=== PATIENT | male | born 1955 | race Caucasian/White ===

== ENCOUNTER 2020-05-24 12:45 | Outpatient (CLI) | payer OTHER, SELFPAY ==
--- NOTE | ~2020-05-24 | XR_ITS ---
XR chest 2V DATE: 05/24/2020 13:03 INDICATION: Preoperative evaluation. Hypertension. 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 TECHNIQUE: PA and lateral views COMPARISON: None FINDINGS: Diffuse idiopathic skeletal hyperostosis of the thoracolumbar spine. Normal heart size. No hilar or mediastinal enlargement. No pulmonary infiltrate or consolidation, ple ural effusion or pulmonary vascular congestion or pneumothorax. IMPRESSION: No active cardiac pulmonary disease Reviewed, dictated and finalized at location B.
== END 2020-05-24 12:46 | disposition home or self-care (01) ==
LOC: CHSIMG 12:49
PROVIDERS: PCP Internal Medicine; Visit Provider Internal Medicine
DX: M19.90 Unspecified osteoarthritis, unspecified site (principal); E11.9 Type 2 diabetes mellitus without complications; I10 Essential (primary) hypertension; Z01.818 Encounter for other preprocedural examination
CPT/HCPCS: 71046

== ENCOUNTER 2020-10-19 11:28 | Outpatient (CLI) | payer OTHER, SELFPAY ==
--- NOTE | ~2020-10-19 | XR_ITS ---
EXAMINATION: XR chest 2V EXAM DATE: 10/19/2020 11:54 INDICATION: Preoperative. TECHNIQUE: Frontal and lateral projections of the chest obtained and reviewed. Comparison is made to prior examination from 05/24/2020. FINDINGS: The lungs are clear. There are no pleural effusions. The cardiomediastinal silhouette is within normal limits. There is no pneumothorax suspected. Patient has diffuse idiopathic skeletal h yperostosis (DISH). IMPRESSION: No acute cardiopulmonary findings. Reviewed, dictated and finalized at location A. 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
== END 2020-10-19 11:29 | disposition home or self-care (01) ==
LOC: CHSIMG 11:30
PROVIDERS: PCP Internal Medicine; Visit Provider Internal Medicine
DX: Z01.818 Encounter for other preprocedural examination (principal); E11.9 Type 2 diabetes mellitus without complications
CPT/HCPCS: 71046

== ENCOUNTER 2021-08-31 10:54 | Outpatient (RCR) | payer OTHER, SELFPAY ==
--- NOTE | 2021-08-31 11:46 | PTOPEVAL ---
Thank you for referring Jefferson Hillman to [facility].? The patient is scheduled to be seen for therapy? ____x/week for ___ weeks. Please review, sign, date and return this plan of care JC. I agree with and certify that the following plan of care is medically necessary. Referring Physician Date Admitting Provider: Attending Provider: MARY QUIJANO Referring Provider: ShikhaPT Outpatient Evaluation Start: 08/31/21 11:06 Freq: Status: Active Protocol: Document 08/31/21 11:05 [facility] (Rec: 08/31/21 11:44 [facility] [id number]) Therapy Assessment Status Assessment Status Assessment Status Evaluation Evaluation Information Problem Diagnosis s/p L TKA Onset 08/29/21 Additional Evaluation Detail LEFS = Subjective Information patient reports he had TKA of Query Text:As Reported By Patient/ the L knee on 08/29/21. he Family reports the knee was arthritic and had been painful for years. he reports prior to surgery he was using a cane to ambulate. he reports he would like to get rid of the cane for ambulation. he reports he has had the R hip replaced about 10 months ago. he reports the knee is feeling better already. he reports the post op bandage and wrap came of yesterday. follow up with MD on 09/20/21. Prior Level of Function Comments Additional Prior Level of Function prior to surgery, patient Comments reports he had pain in the L knee, weakness, decreased rom, and difficulty walking without an AD. Pain Assessment Timing of Pain Assessment Timing of Pain Assessment Assessment Pain Scale Pain Scale Used Numeric (1 - 10) Self Report Pain Assessment Left Knee(s) Reported Pain Level 3 Greatest Pain Intensity 4 Pain Score Pain Score 3: Self Report Interventions Used Interventions Used By Clinicians Activity or ADL's,Compression Pump,Education,Elevation, Exercise,Ice Lower Extremity Range of Motion Knee Range of Motion Left Knee Flexion Range of Motion - Active 98 Knee Extension Range of Motion - Active -10 Query Text: Right Knee Flexion Range of Motion - Active 115 Knee Extension Range of Motion - Active -3 Query Text: Lower Extremity Muscle Strength Testing Hip Streng
--- NOTE | 2021-09-13 10:58 | PTOPEVAL ---
Thank you for referring Jefferson Hillman to [facility].? The patient is scheduled to be seen for therapy? ____x/week for ___ weeks. Please review, sign, date and return this plan of care JC. I agree with and certify that the following plan of care is medically necessary. Referring Physician Date Admitting Provider: Attending Provider: MARY QUIJANO Referring Provider: ShikhaPT Outpatient Evaluation Start: 08/31/21 11:06 Freq: Status: Active Protocol: Document 09/13/21 10:00 [facility] (Rec: 09/13/21 10:53 [facility] [id number]) Therapy Assessment Status Assessment Status Assessment Status Progress Evaluation Information Problem Diagnosis s/p L TKA Onset 08/29/21 Subjective Information patient reports no pain in the Query Text:As Reported By Patient/ L knee this date. he reports Family the L knee is still tight with bending, but overall is doing well. he reports itching from removing the tape/bandage on the L knee. he rpeorts he apparently is allergic to the adhesive used. Pain Assessment Timing of Pain Assessment Timing of Pain Assessment Assessment Self Report Self Report Pain Level 0 Pain Score Pain Score 0: Self Report Lower Extremity Range of Motion Knee Range of Motion Left Knee Flexion Range of Motion - Active 115 Knee Flexion Range of Motion - Passive -3 Lower Extremity Muscle Strength Testing Hip Strength Left Hip Flexion Strength 4 Good Hip Strength Comments no extension lag with SLR of the L LE Knee Strength Left Knee Flexion Strength 4+ Good + Knee Extension Strength 5 Normal Muscle Length Testing Muscle Length Testing Left Hamstring Length 40 Query Text:(90 - 90 Position) Palpation Assessment Palpation Palpation 4cm girth increase of the L knee jt line compared to the R knee jt line. patient displays redness surrouding the L knee where bandages and tape were used. photos taken this date, and MD updated of this reaction. Gait Assessment Gait Pattern Assessment Other Gait Observations patient ambulates without AD this date. he ambulates 200ft with mild antalgia, but during 3rd 100ft lap he begins to diaplsy increased L trunk lean
--- NOTE | 2021-09-27 12:32 | PTOPEVAL ---
Thank you for referring Jefferson Hillman to [facility].? The patient is scheduled to be seen for therapy? ____x/week for ___ weeks. Please review, sign, date and return this plan of care JC. I agree with and certify that the following plan of care is medically necessary. Referring Physician Date Admitting Provider: Attending Provider: MARY QUIJANO Referring Provider: ShikhaPT Outpatient Evaluation Start: 08/31/21 11:06 Freq: Status: Active Protocol: Document 09/27/21 11:00 [facility] (Rec: 09/27/21 12:32 [facility] [id number]) Therapy Assessment Status Assessment Status Assessment Status Re-evaluation Evaluation Information Problem Diagnosis s/p L TKA Onset 08/29/21 Subjective Information patient reports he feels Query Text:As Reported By Patient/ pretty good this date. he Family reports he does still have trouble with getting the L knee completely straight. he reports he is not sure how long it has been since it was last straight before surgery. he reports he is partially completing home exercises for knee extension. he reports he is performing heel prop exercise, but not the prone knee extension exercise. Pain Assessment Timing of Pain Assessment Timing of Pain Assessment Assessment Pain Scale Pain Scale Used Numeric (1 - 10) Self Report Pain Assessment Left Knee(s) Reported Pain Level 0 Greatest Pain Intensity 4 Pain Score Pain Score 0: Self Report Interventions Used Interventions Used By Clinicians Activity or ADL's,Compression Pump,Education,Exercise,Ice, Manual Therapy Techniques Lower Extremity Range of Motion Knee Range of Motion Left Knee Flexion Range of Motion - Active 110 Knee Flexion Range of Motion - Passive 115 Knee Extension Range of Motion - Active -4 Query Text: Lower Extremity Muscle Strength Testing Hip Strength Left Hip Flexion Strength 4 Good Knee Strength Left Knee Flexion Strength 5 Normal Knee Extension Strength 5 Normal Ankle Strength Left Ankle Dorsiflexion Strength 5 Normal Ankle Plantarflexion Strength 4+ Good + Muscle Length Testing Muscle Length Testing Left Hamstring Length 40 Query Text:(90 - 90 Position) Palpation Assessment Palpation Palpation 46.5cm R knee jt line girth 49cm L knee jt line girth G
--- NOTE | 2021-10-18 13:22 | PTOPEVAL ---
Thank you for referring Jefferson Hillman to [facility].? The patient is scheduled to be seen for therapy? ____x/week for ___ weeks. Please review, sign, date and return this plan of care JC. I agree with and certify that the following plan of care is medically necessary. Referring Physician Date Admitting Provider: Attending Provider: MARY QUIJANO Referring Provider: ShikhaPT Outpatient Evaluation Start: 08/31/21 11:06 Freq: Status: Active Protocol: Document 10/18/21 13:12 [facility] (Rec: 10/18/21 13:21 [facility] [id number]) Therapy Assessment Status Assessment Status Assessment Status Discharge Evaluation Information Problem Diagnosis s/p L TKA Onset 08/29/21 Additional Evaluation Detail LEFS = 16% functionally declined Subjective Information patient reports he feels good Query Text:As Reported By Patient/ this date. he reports he has Family minimal pain in the L knee. he reports he is back to doing his normal daily routine. he is ready to DC therapy this date. Pain Assessment Timing of Pain Assessment Timing of Pain Assessment Assessment Pain Scale Pain Scale Used Numeric (1 - 10) Self Report Pain Assessment Left Knee(s) Reported Pain Level 1 Pain Score Pain Score 1: Self Report Interventions Used Interventions Used By Clinicians Activity or ADL's,Compression Pump,Education,Exercise,Ice, Manual Therapy Techniques Lower Extremity Range of Motion General Lower Extremity Range of Motion Gross Lower Extremity Range of Motion -3 degrees arom L knee Comments extension 120 degrees arom L knee flexion Lower Extremity Muscle Strength Testing General Lower Extremity Strength Gross Lower Extremity Strength 5/5 bilateral hip flex 5/5 bilateral knee flex and ext Gait Assessment Gait Pattern Assessment Gait Pattern No Deviations/Normal Other Gait Observations patient not using cane for ambulation, except when ambulating outside on unlevel surface. Stair Climbing Assessment Stair Climbing Assessment Stair Climbing Comments ambulation up and down steps recirpocally and independent with 1 hand rail hold/assist General Exercise General Exercises Exercise Description see Vy Bernstein PTA Query Text:Record Sets, Reps, documentation Resistance, and Posi
--- NOTE | 2021-10-18 13:50 | PTOPEVAL ---
Thank you for referring Jefferson Hillman to [facility].? The patient is scheduled to be seen for therapy? ____x/week for ___ weeks. Please review, sign, date and return this plan of care JC. I agree with and certify that the following plan of care is medically necessary. Referring Physician Date Admitting Provider: Attending Provider: MARY QUIJANO Referring Provider: ShikhaPT Outpatient Evaluation Start: 08/31/21 11:06 Freq: Status: Active Protocol: Document 10/18/21 13:12 [facility] (Rec: 10/18/21 13:21 [facility] [email or web address]) Therapy Assessment Status Assessment Status Assessment Status Discharge Evaluation Information Problem Diagnosis s/p L TKA Onset 08/29/21 Additional Evaluation Detail LEFS = 16% functionally declined Subjective Information patient reports he feels good Query Text:As Reported By Patient/ this date. he reports he has Family minimal pain in the L knee. he reports he is back to doing his normal daily routine. he is ready to DC therapy this date. Pain Assessment Timing of Pain Assessment Timing of Pain Assessment Assessment Pain Scale Pain Scale Used Numeric (1 - 10) Self Report Pain Assessment Left Knee(s) Reported Pain Level 1 Pain Score Pain Score 1: Self Report Interventions Used Interventions Used By Clinicians Activity or ADL's,Compression Pump,Education,Exercise,Ice, Manual Therapy Techniques Lower Extremity Range of Motion General Lower Extremity Range of Motion Gross Lower Extremity Range of Motion -3 degrees arom L knee Comments extension 120 degrees arom L knee flexion Lower Extremity Muscle Strength Testing General Lower Extremity Strength Gross Lower Extremity Strength 5/5 bilateral hip flex 5/5 bilateral knee flex and ext Gait Assessment Gait Pattern Assessment Gait Pattern No Deviations/Normal Other Gait Observations patient not using cane for ambulation, except when ambulating outside on unlevel surface. Stair Climbing Assessment Stair Climbing Assessment Stair Climbing Comments ambulation up and down steps recirpocally and independent with 1 hand rail hold/assist General Exercise General Exercises Exercise Description see Vy Bernstein PTA Query Text:Record Sets, Reps, documentation Resistance, and Posi
== END 2021-10-18 14:49 | disposition home or self-care (01) ==
LOC: CHSPT 10:54
PROVIDERS: PCP Internal Medicine
DX: M25.562 Pain in left knee (principal); Z47.1 Aftercare following joint replacement surgery; Z96.659 Presence of unspecified artificial knee joint
CPT/HCPCS: 97016; 97110; 97161; 97530

== ENCOUNTER 2022-05-17 15:45 | Outpatient (CLI) | payer OTHER, SELFPAY ==
--- NOTE | ~2022-05-17 | XR_ITS ---
XR lumbar spine 2-3V DATE: 05/17/2022 16:08 INDICATION: Low back pain radiating down right leg for years TECHNIQUE: AP, lateral, coned lateral lumbosacral views COMPARISON: 09/12/2018 lumbar spine FINDINGS: There is minimal dextroscoliosis of the lower thoracic and lumbar spine. There is prominent degenerative spurring of the thoracic and lumbar spine. Moderate degenerative dis c disease throughout the lumbar and lumbosacral spine. The lower thoracic and lumbar pedicles are in tact. No fracture or bone destruction. The lower thoracic and lumbar pedicles are intact. There is a transitional lumbosacral vertebra with bilateral lateral element pseudarthrosis. The sacroiliac joints are intact. Right hip arthroplasty. 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 IMPRESSION: Prominent degenerative spurring throughout the lower thoracic and l umbar spine, moderate degenerative disc disease throughout lumbar spine Transitional lumbosacral vertebra with bilateral sacralization and pseudoarthro sis
== END 2022-05-17 15:46 | disposition home or self-care (01) ==
LOC: CHSIMG 15:47
PROVIDERS: PCP Internal Medicine; Visit Provider Nurse Practitioner Family
DX: M54.50 Low back pain, unspecified (principal)
CPT/HCPCS: 72100

== ENCOUNTER 2023-08-24 10:05 | Outpatient (CLI) | payer MEDICARE, SELFPAY ==
--- NOTE | ~2023-08-24 | XR_ITS ---
XR foot LT min 3V DATE: 08/24/2023 10:39 INDICATION: Redness and swelling at second digit for 4 days TECHNIQUE: 4 views COMPARISON: None FINDINGS: Prominent plantar and mild posterior calcaneal enthesopathy. Mild tarsal and first metatarsophalangeal osteoarthritis. There is soft tissue swelling of the second digit. No fracture, dislocation, periosteal reaction or b one destruction is detected. IMPRESSION: Soft tissue swelling of second digit; no radiopaque foreign body or subcutaneous emphysem a line no fracture or dislocation Calcaneal enthesopathy Osteoarthritis Reviewed, dictated and finalized at location A. IMPRESSION: Soft tissue swelling of second digit; no radiopaque foreign body or subcutaneous emphysema line no fracture or dislocation Calcaneal enthesopathy Osteoarthritis
== END 2023-08-24 10:06 | disposition home or self-care (01) ==
PROVIDERS: PCP Internal Medicine; Visit Provider Nurse Practitioner Family
DX: M79.89 Other specified soft tissue disorders (principal); M77.32 Calcaneal spur, left foot; M19.072 Primary osteoarthritis, left ankle and foot
CPT/HCPCS: 73630

== ENCOUNTER 2023-08-30 12:19 | Outpatient (CLI) | payer MEDICARE, SELFPAY ==
--- NOTE | ~2023-08-30 | US_ITS ---
EXAMINATION: US arterial ankle brachial ind DATE: 08/30/2023 12:57 INDICATION: Peripheral arterial disease. TECHNIQUE: Segmental pressures and plethysmographic and Doppler waveforms of the brachial and lower e xtremity arteries were obtained. COMPARISON: None. FINDINGS: Right and left brachial artery pressures of 127 mm Hg and 122 mm Hg, respectively, are concordant (no rmal difference <= 30 mmHg). The right ankle-brachial index (DEMETRIO) is 1.34 (normal >= 0.9-1.0). The right great toe-brachial index (TBI) is 0.98 (normal >= 0.65). Arterial Doppler waveforms are triphasic in popliteal artery and biph asic at the ankle. The left DEMETRIO is 1.24. The left TBI is 0.87. Arterial Doppler waveforms are triphasic in popliteal art jimy and biphasic at the ankle. IMPRESSION: 1. No significant arterial occlusive disease. Reviewed, dictated and finalized at location A.
== END 2023-08-30 12:20 | disposition home or self-care (01) ==
LOC: CHSIMG 12:21
PROVIDERS: PCP Internal Medicine; Visit Provider Nurse Practitioner Family
DX: E11.9 Type 2 diabetes mellitus without complications (principal); E78.5 Hyperlipidemia, unspecified; I73.9 Peripheral vascular disease, unspecified
CPT/HCPCS: 93922

== ENCOUNTER 2025-06-10 14:34 | Outpatient (RCR) | payer MEDICARE, SELFPAY ==
[2025-06-10 14:43] VITALS: BMI 35.5
--- NOTE | 2025-06-10 16:17 | PCDIET ---
MNT consult completed.
--- NOTE | 2025-09-07 09:36 | PCDIET ---
09/07/25: Pt cancelled 2024 MNT follow up. No reschedule at this time.
== END 2025-08-31 06:21 | disposition home or self-care (01) ==
LOC: ANHDMC 14:34
PROVIDERS: PCP Internal Medicine; Visit Provider Internal Medicine
DX: E11.9 Type 2 diabetes mellitus without complications (principal); Z71.3 Dietary counseling and surveillance
CPT/HCPCS: 97802

== ENCOUNTER 2025-08-19 09:45 | Outpatient (CLI) | payer MEDICARE, SELFPAY ==
--- OUTSIDE RECORDS SUMMARY | 2024-08-20 04:00 | XMS_ITS ---
Author Organization [facility] Address [address] [place], [place] [id number] Care Team Providers Care Quencher Operator Name Role Phone JOHN COY Unavailable [phone] Gibran Diamond Unavailable Unavailable KIT NICKERSON Unavailable [phone] REASON FOR VISIT *Wound check Encounters Encounter Location Date Provider Diagnosis [address] [id number] 08/20/2024 KIT NICKERSON Plan Of Treatment No Information Progress Notes * REGINA GONSALVESDOB:1955 ( 69 yo M)Acc No.[id number]:08/20/2024 Patient: REGINA SALINAS Provider: Maame NICKERSON :1955 A ge:68 Y S ex:Male Date:08/20/2024 Address:[address] [place], [place] [id number] Subjective: * Chief Complaints: * 1 . *Wound check. * Medical History: Objective: * Vitals: Assessment: Plan: * Treatment: * Billing Information: * Visit Code: * Procedure Codes: * Electronic signature of ELIZABETH NICKERSON DPM on 08/19/2025 at 10:14 AM CDT Sign off status: Pending * Provider: Maame NICKERSON Date: 1 Generated for Virginia ocampo/Wesley/eTdagmar on: 10:14 AM CDT
--- NOTE | 2025-08-19 | CONSULT_PTH ---
PATIENT: Jefferson Hillman LOC: [facility] U#:[id number] AGE/SX: 69/M ROOM: RE08/19/[address]: Ld Quesada MD : 1955 BED: DIS: 08/19/2025 SPEC #: [id number] RECD: 08/19/25 12:14 STATUS: SUSIE REQ #: [id number] REESE: 08/19/25 00:[address]: Ld Quesada DEPT: [facility] Consult RECD BY: Michelle Callahan MLT, ([facility]) ENTERED: 08/19/25 12:14 SP TYPE: Consult OTHR DR: Gibran Diamond MD Tissues: A - Peripheral Smear Procedures: Hematology Consult
--- OUTSIDE RECORDS SUMMARY | 2025-08-19 10:14 | XMS_ITS | Clinical Summary ---
Author Organization [facility] Address [address] [place] [address] Care Team Providers Care Academic Support Specialist Name Role Phone Gibran Diamond MD Primary Care Provider [phone] Carlitos Nolan MD Unavailable [phone] Meenu Quick APRN, PLASTIC HOSPITAL PRODUCTS ASSEMBLER-C Unavailable Allergies Active Allergy Reactions Criticality Noted Date Comments Tape Rash,Itching Low 11/05/2022 [facility] Tape Medications cetirizine 10 MG tabletIndicati ons:allergies Take 10 mg by mouth daily. Indications: allergies Active montelukast 10 MG tabletIndicati ons:allergies Take 10 mg by mouth nightly at bedtime. Indications: allergies Active lovastatin 20 MG tabletIndicati ons:Hyperlipid emia Take 20 mg by mouth daily with supper. Indications: High Amount of Fats in the Blood Active glimepiride 2 MG tabletIndicati ons:Diabetes Mellitus Take 2 mg by mouth 2 (two) times daily with meals. Indications: Diabetes Active telmisartan 20 MG TabIndications :Hypertension Take 20 mg by mouth 2 (two) times a day. Indications: High Blood Pressure Disorder Active famotidine 40 MG tabletIndicati ons:Gastroesop hageal Reflux Disease Take 40 mg by mouth daily. Indications: Gastroesophageal Reflux Disease 08/26/20 20 Active acetaminophen 500 MG tablet Take 500 mg by mouth every 4 (four) hours as needed for Pain. Activ e amoxicillin 500 MG capsule TAKE 4 CAPSULES BY MOUTH ONE HOUR PRIOR TO APPOINTMENT 07/19/20 21 Active RYBELSUS 14 MG Tab Take 14 mg by mouth daily. 06/03/20 21 Active SITagliptin-me tFORMIN HCl (JANUMET) 50-1000 MG Tab Take 1 tablet by mouth 2 (two) times daily with meals. Active DULoxetine (CYMBALTA) 30 MG capsule Take 30 mg by mouth 2 (two) times a day. 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 ([facility]) 06/17/2023 Essential (primary) hypertension 11/05/2022 SOB (shortness of breath) 12/28/2019 Difficulty walking 12/28/2019 Abnormal EKG 12/23/2019 Sleep apnea Overview (12/23/2019): does not use CPAP Seasonal allergies Hyperlipidemia Diabetes mellitus ([facility]) Chronic sinusitis Arthritis GERD (gastroesophageal reflux disease) Resolved Problems Problem Noted Date Diagnosed Date Resolved Date Pre-operative cardiovascular examination 12/23/2019 07/29/2020 Family History Medical History Relation Comments Coronary artery disease Father Diabetes Father Heart Disease Father Arthritis Mother Diabetes Mother Diabetes Paternal Grandmother Relation Status Comments Father Mother Paternal Grandmother Social History Tobacco Use Types Packs/Day Years Used Date Smoking Tobacco: Never Smokeless Tobacco: Never Tobacco Cessation:Counseling Given: Not Answered Alcohol Use Standard Drinks/Week Comments Yes 0 (1 standard drink = 0.6 oz pur e alcohol) 1-2 drinks a month Sex and Gender Information Value Date Recorded Sex Assigned at Not on file Legal Sex Male 5:43 PM PRESS CATCHER Gender Identity Not on file Sexual Orientation Not on file Last Filed Vital Signs Vital Sign Reading Time Taken Comments Blood Pressure 108/64 11/05/2022 10:52 AM PRESS CATCHER Pulse 89 11/05/2022 10:52 AM PRESS CATCHER Temperature 36.6 C (97.9 F) 10/25/2020 10:16 AM PRESS CATCHER Respiratory Rate 18 11/05/2022 10:5 2 AM PRESS CATCHER Oxygen Saturation 98% 08/10/2021 8:31 AM CDT Inhaled Oxygen Concentration - - Weight 134.4 kg (296 lb 6.4 oz) 022 10:52 AM PRESS CATCHER Height 195.6 cm (6' 5) 11/05/2022 10:5 2 AM PRESS CATCHER Body Mass Index 35.15 11/05/2022 10:52 AM PRESS CATCHER Plan of Treatment Health Maintenance Due Date Last Done Comments Colorectal Cancer Screening Colonoscopy (10 Years) 1957 Kidney Health Evaluation 1957 Diabetes: Retinopathy Eye Exam 1975 Hepatitis C 1975 DTaP, Tdap and Td Vaccines ( 1 - Tdap) 1976 Pneumococcal Vaccine: 50+ Years (1 of 2 - PCV) 1976 Zoster Vaccines (1 of 2) 2007 Lipid Panel 04/04/2020 04/04/2019 Hemoglobin A1C 11/23/2021 05/23/2021, 12/14/2019 Annual Medicare Wellness Visit 2022 COVID-19 Vaccine (1 - 2023-2 5 season) 2025 RSV Immunization or 60+ Years (1 - 1-dose 75+ series) 2032 Meningococcal B Vaccine Aged Out No l onger eligible based on patient's age to complete this topic Meningococcal Vaccine Aged Out No richy bobbi eligible based on patient's age to complete this topic RSV Immunizations Under 20 Months Aged Out No longer eligible b ased on patient's age to complete this topic Medical Devices Implanted Type Area Base Draw Operator Device Identifier Shelf Expiration Date Model / Serial / Lot Head Allie Femoral V40 36mm 0mm - [id number] Implanted:Qty: 1 on 10/25/2020 by Carlitos Nolan MD at [facility] Hip Components Right: Hip [employer] 09/05/2025 [id number] 6 / / [id number] Acetabular Shell Implanted:Qty: 1 on 10/25/2020 by Carlitos Nolan MD at [facility] Right: Hip [employer] 04/17/2023 [id number] H / / [id number] Hex Screw Implanted:Qty: 1 on 10/25/2020 by Carlitos Nolan MD at [facility] Right: Hip [employer] 12/15/2024 [id number] / / [id number] Hex Screw Implanted:Qty: 1 on 10/25/2020 by Carlitos Nolan MD at [facility] Right: Hip [employer] 06/19/2025 [id number] / / [id number] Polyethylene Insert Implanted:Qty: 1 on 10/25/2020 by Carlitos Nolan MD at [facility] Right: Hip [employer] 07/08/2025 623-00-36 H / / [id number] Hip Stem Implanted:Qty: 1 on 10/25/2020 by Carlitos Nolan MD at [facility] Right: Hip [employer] 06/25/2022 [id number] / / [id number] Explanted Type Area Base Draw Operator Device Identifier Shelf Expiration Date Model / Serial / Lot Pin Allie Bone Dipak 170 X 4 - [id number] Explanted:Qty: 2 on 10/25/2020 by Carlitos Nolan MD at [facility] Pin Right: Hip [employer] [id number] / / [id number] Drill Bit Explanted:Qty: 1 on 10/25/2020 by Carlitos Nolan MD at [facility] Right: Hip [employer] [id number] / / Procedures Procedure Name Priority Date/Time Associated Diagnosis Comments HEMOGLOBIN, GLYCOSYLATED Routine 05/23/2021 LIPID PANEL Routine 04/04/2019 from Last 3 Months or Most Recently Relevant to Health Maintenance Results * HEMOGLOBIN, GLYCOSYLATED (05/23/2021) HGB A1C 7.6 <5.7 % 05/23/2021 [facility] LAB[facility]AT[facility] Final Result * LIPID PANEL (04/04/2019) CHOLESTEROL 163 HDL 42 TRIGLYCERIDES 227 NON HDL CHOLESTEROL 121 CHOL/HDL RATIO 3.9 LDL (CALCULATED) 89 04/04/2019 [facility] LAB[facility]AT[facility] Final Result from Last 3 Months or Most Recently Relevant to Health Maintenance Insurance A[employer] MEDICARE Advance Directives * Full Code (Latest Code Status on File) Date Activated Date Inactivated Comments 10/25/2020 12:02 PM 10/25/2020 6:38 PM * Full Code Date Activated Date Inactivated Comments 01/14/2020 2:23 PM 01/14/2020 6:44 PM * Full Code Date Activated Date Inactivated Comments 01/14/2020 2:23 PM 01/14/2020 2:23 PM Care Teams Academic Support Specialist Relationship Specialty Start Date End Date Gibran Diamond MD [address] [place] [address] PCP - General INTERNAL MEDICINE 12/10/19 Carlitos Nolan MD [address] [place] [phone] ORTHOPAEDICS 04/22/20 Meenu Quick, MANAGER HOUSE, PLASTIC HOSPITAL PRODUCTS ASSEMBLER-C [address] [facility] [address] [place] [address] NURSE PRACTITIONER 10/03/20
--- OUTSIDE RECORDS SUMMARY | 2025-08-19 10:14 | XMS_ITS | Encounter Summary ---
Author Organization [facility] Address [facility] [place] [address] Care Team Providers Care Marine Insurance Claim Examiner Name Role Phone Gibran Diamond MD Primary Care Provider [phone] Carlitos Nolan MD Unavailable [phone] Meenu Quick APRN, FRUIT AND VEGETABLE INSPECTOR-C Unavailable [phone] Encounter Details Date Type Department Care Team (Late st Contact Info) Description 04/25/2019 Abstract [facility] [address] [place] [address] , Generic ConversionMD Social History Tobacco Use Types Packs/Day Years Used Date Smoking Tobacco: Never Assessed Sex and Gender Information Value Date Recorded Sex Assigned at Not on file Legal Sex Male 5:43 PM ROOM SERVER Gender Identity Not on file Sexual Orientation Not on file documented as of this encounter Plan of Treatment Not on file documented as of this encounter Visit Diagnoses Not on filedocumented in this encounter Additional Health Concerns Infection Onset Date Last Indicated Resolved Time COVID-19 Rule Out 10/22/2020 10/22/2020 10/23/2020 5:54 PM ROOM SERVER COVID-19 Rule Out 08/26/2021 08/26/2021 08/26/2021 7:14 PM CDT documented as of this encounter Care Teams Marine Insurance Claim Examiner Relationship Specialty Start Date End Date Gibran Diamond MD [address] [place] [address] PCP - General INTERNAL MEDICINE 12/10/19 Carlitos Nolan MD [address] [place] [address] ORTHOPAEDICS 04/22/20 Meenu Quick APRN, FRUIT AND VEGETABLE INSPECTOR-C [address] [facility] [address] [place] [address] NURSE PRACTITIONER 10/03/20 documented as of this encounter
--- OUTSIDE RECORDS SUMMARY | 2025-08-19 10:14 | XMS_ITS | Encounter Summary ---
Author Organization [facility] Address [facility] [place] [address] Care Team Providers Care Edge Kitter Name Role Phone Gibran Diamond MD Primary Care Provider [phone] Carlitos Nolan MD Unavailable [phone] Meenu Quick APRN, RANGE ECOLOGIST-C Unavailable Encounter Details Date Type Department Care Team ([facility] st Contact Info) Description 08/10/2021 Abstract [facility] [address] [place] [phone] Meenu Quick APRN, RANGE ECOLOGIST-C [address] [facility] [address] [place] [address] Social History Tobacco Use Types Packs/Day Years Used Date Smoking Tobacco: Never Smokeless Tobacco: Never Alcohol Use Standard Drinks/Week Comments Yes 0 (1 standard drink = 0.6 oz pur e alcohol) 1-2 drinks a month Sex and Gender Information Value Date Recorded Sex Assigned at Not on file Legal Sex Male 5:43 PM BILLING COLLECTIONS SPECIALIST Gender Identity Not on file Sexual Orientation Not on file COVID-19 Exposure Response Date Recorded In the last month, have you been in contact with someone who was confirmed or suspected to have Coronavirus / COVID-19? No / Unsure 08/10/2021 8:18 AM CDT documented as of this encounter Functional Status * RETIRED Are you deaf or do you have serious difficulty hearing Answer Date of Assessment Author Status No 10/25/2020 6:22 AM BILLING COLLECTIONS SPECIALIST Activ e documented as of this encounter Plan of Treatment Not on file documented as of this encounter Procedures Procedure Name Priority Date/Time Associated Diagnosis Comments CMP (ABSTRACTED LAB) Routine 05/24/2021 HEMOGLOBIN, GLYCOSYLATED Routine 05/23/2021 documented in this encounter Results * CMP (ABSTRACTED LAB) (05/24/2021) SODIUM S/P/B 138 135 - 146 POTASSIUM S/P/B 4.7 3.5 - 5.3 CHLORIDE S/P/B 102 98 - 110 CO2 24 20 - 32 BUN 18 7 - 25 CREATININE S/P/B 1.09 0.7 - 1.3 EGFR AFR. AMER. 83 <=90 EGFR NON-AFR. AMER. 72 <=90 CALCIUM S/P/B 9.9 8.6 - 10.3 GLUCOSE 165 65-99- mg/dL TOTAL PROTEIN S/P/B 7.0 6.1 - 8.1 ALBUMIN S/P/B 4.5 3.6 - 5.1 AST 22 10 - 35 ALT 24 9 - 46 ALKALINE PHOSPHATASE S/P/B 66 35 - 144 BILIRUBIN TOTAL S/P/B 0.6 0.2 - 1.2 05/24/2021 us Doc [facility] Abstract LAB-OUTSIDE/ABSTRACTED Final Result * HEMOGLOBIN, GLYCOSYLATED (05/23/2021) HGB A1C 7.6 <5.7 % 05/23/2021 us Doc [facility] LABORAT[facility] Final Result documented in this encounter Visit Diagnoses Not on filedocumented in this encounter Additional Health Concerns Infection Onset Date Last Indicated Resolved Time COVID-19 Rule Out 08/26/2021 08/26/2021 08/26/2021 7:14 PM CDT documented as of this encounter Care Teams Edge Kitter Relationship Specialty Start Date End Date Gibran Diamond MD [address] [place] [address] PCP - General INTERNAL MEDICINE 12/10/19 Carlitos Nolan MD [address] [place] [address] ORTHOPAEDICS 04/22/20 Meenu Quick APRN, RANGE ECOLOGIST-C [address] [facility] [address] [place] [address] NURSE PRACTITIONER 10/03/20 documented as of this encounter
--- OUTSIDE RECORDS SUMMARY | 2025-08-19 10:14 | XMS_ITS | Patient Health Record ---
Author Organization [facility] Address [address] [place], [place] [phone] Care Team Providers Care Public Health Technologist Name Role Phone DONNY RAMOSIC Unavailable [phone] Gibran Diamond Unavailable Unavailable CHALINOKIT MONTOYA Unavailable [phone] Allergies Allergen (clinical drug ingredient) Drug/Non Drug Allergy documented on EMR Reaction Allergy Type Onset Date Status sulfamethoxazole / trimethoprim Sulfamethoxazole/Tr imethoprim Unknown Drug Allergy Active Reason For Referral No Information Medications Medication SIG (Take, Route, Frequency, Duration) Notes Start Date End Date Status metFORMIN HCl 500 MG 1 tablet with a oliverio l Orally Once a day Active Escitalopram Oxalate 10 MG 1 tablet Orally Once a day Active Lovastatin 20 MG 1 tablet with the ev ening meal Orally Once a day Active Cephalexin 500 MG 1 capsule Orally thr ee times a day; Duration: 7 days Active Telmisartan 20 MG 2 tablets Orally Onc e a day Active Montelukast Sodium 10 MG 1 tablet Orally Once a day Active Celecoxib 200 MG 1 capsule with food Orally Once a day Active Glimepiride 2 MG 1 tablet with breakf ast or the first main meal of the day Orally Once a day Active Mounjaro 7.5 MG/0.5ML as directed Subcutaneous Active Immunizations Vaccine Route Administration Date Status Comme nts Influenza, unspecified formulation Unknown 08/29/2023 A dministered Encounters Encounter Location Date Provider Diagnosis [facility] [place] [address] [place], [place] [phone] 08/24/2024 JOHN COY 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 ; Other hammer toe(s) (acquired), left foot M20.42 and Type 2 diabetes mellitus with foot ulcer E11.621 [facility] [place] [address] [place] [id number] 09/21/2024 JOHNTRENTON COY 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 ; Other hammer toe(s) (acquired), left foot M20.42 ; Type 2 diabetes mellitus with foot ulcer E11.621 and Encounter for other specified surgical aftercare Z48.89 [facility] [place] [address] [place] [id number] 12/21/2024 JOHNTRENTON COY Encounter for other specified surgical aftercare Z48.89 ; Hammer toe of left foot M20.42 ; Plantar wart B07.0 and Type 2 diabetes mellitus with foot ulcer E11.621 Assessments Encounter Date Diagnosis (ICD Code) Assessment Notes Treatment Notes Treatment Clinical Notes Section Notes 08/24/2024 Non-pressure chronic ulcer of other part of left foot with fat layer exposed (ICD-10 - L97.522) Ulcer Resolved: The nonviable tissue from the uler site was debrided down to normal appearing tissue. Advised patient to monitor this area for recurrence. Patient may discontinue local wound care. 08/24/2024 Other hammer toe(s) (acquired), left foot (ICD-10 - M20.42) 09/21/2024 Non-pressure chronic ulcer of other part of left foot with fat layer exposed (ICD-10 - L97.522) Ulcer Resolved: The nonviable tissue from the uler site was debrided down to normal appearing tissue. Advised patient to monitor this area for recurrence. Patient may discontinue local wound care. 09/21/2024 Other hammer toe(s) (acquired), left foot (ICD-10 - M20.42) 12/21/2024 Encounter for other specified surgical aftercare (ICD-10 - Z48.89) 12/21/2024 Hammer toe of left foot (ICD-10 - M20.42) 12/21/2024 Plantar wart (ICD-10 - B07.0) 09/21/2024 Type 2 diabetes mellitus with foot ulcer (ICD-10 - E11.621) 08/24/2024 Type 2 diabetes mellitus with foot ulcer (ICD-10 - E11.621) 12/21/2024 Type 2 diabetes mellitus with foot ulcer (ICD-10 - E11.621) Resolved 09/21/2024 Encounter for other specified surgical aftercare (ICD-10 - Z48.89) Plan Of Treatment No Information Insurance Providers Payer Name Payer Address Payer Phone Subscriber Number Group Number Insured Name Patient Relationship to Insured Coverage Start Date Coverage End Date Aet[employer] [address] [place] [phone] [id number] REGINA GONSALVES Self - patient is the insured Medical (General) History Medical History History ICD Code ACID REFLUX ARTIFICIAL JOINTS OPEN SORES ARTHRITIS BACK TROUBLE DIABETIC Surgical History Surgery Date(Month/Year) RIGHT HIP REPLACEMENT 2019 LEFT KNEE REPLACEMENT 2020 BACK SURGERY 2021 NECK SURGERY 2021 SINUS 2018
[2025-08-19 10:15] LABS: Hematocrit 25.6 % (37.0-46.0); Hemoglobin 8.1 g/dL (12.4-15.3); Immature Platelet Fraction Pct 3.8 % (1.0-7.0); Mean Corpuscular HGB Conc 31.6 g/dL (32-36); Mean Corpuscular Hemoglobin 31.5 pg (27.0-31.0); Mean Corpuscular Volume 99.6 fL (78.0-102.0); Platelet Count Result 47 K/mm3 (150-420); Red Blood Count 2.57 M/mm3 (4.70-6.10); White Blood Count 2.6 K/mm3 (4.8-10.8)
[2025-08-19 10:38] LABS: Alanine Aminotransferase 19 U/L (6-50); Albumin Level 4.3 g/dL (3.5-5.1); Alkaline Phosphatase 69 U/L (38-126); Anion Gap 12 mmol/L (4-12); Aspartate Amino Transferase 34 U/L (17-59); Bilirubin,Total 0.8 mg/dL (0.2-1.3); Blood Urea Nitrogen 19 mg/dL (9-20); Calcium 9.2 mg/dL (8.4-10.2); Carbon Dioxide 22 mmol/L (22-30); Chloride 110 mmol/L (98-107); Cholesterol 99 mg/dL (0-200); Estimated Glomerular Filt Rate > 60; Glucose 144 mg/dL (65-110); HDL Direct 44 mg/dL; Osmolality Calculated 303 mOsm/kg (285-295); Potassium 4.5 mmol/L (3.4-5.0); Sodium 144 mmol/L (137-145); Total Protein 7.4 g/dL (6.3-8.2); Triglycerides 112 mg/dL (<150)
[2025-08-19 10:54] LABS: Free T4 Free Thyroxine 1.23 ng/dL (0.78-2.19)
[2025-08-19 11:07] LABS: Prostate Specific Antigen 2.2 ng/mL (< OR = 4.0); Thyroid Stimulating Hormone 2.750 uIU/mL (0.465-4.680)
[2025-08-19 11:30] LABS: Vitamin B12 319.0 pg/mL (239-931)
[2025-08-21 09:26] LABS: HIV 1 P24 AG Negative (Negative); HIV 1/2 AB Negative (Negative)
[2025-08-22 10:07] LABS: Cytomegalovirus (CMV) Ab, IgG <0.60 U/mL (0.00-0.59); Cytomegalovirus (CMV) Ab, IgM <30.0 AU/mL (0.0-29.9)
[2025-08-23 04:06] LABS: Free Testosterone (Direct) 4.2 pg/mL (6.6-18.1)
== END 2025-08-19 09:46 | disposition home or self-care (01) ==
LOC: CHSLAB 09:47
PROVIDERS: PCP Internal Medicine; Visit Provider Internal Medicine
DX: E11.9 Type 2 diabetes mellitus without complications (principal); Z98.890 Other specified postprocedural states; Z96.649 Presence of unspecified artificial hip joint; Z96.659 Presence of unspecified artificial knee joint; I10 Essential (primary) hypertension; E78.5 Hyperlipidemia, unspecified; Z12.5 Encounter for screening for malignant neoplasm of prostate; R94.5 Abnormal results of liver function studies; E55.9 Vitamin D deficiency, unspecified
CPT/HCPCS: 36415; 80053; 80061; 80074; 82306; 82607; 84146; 84153; 84270; 84402; 84403; 84439; 84443; 85027; 85055; 86644; 86645; 87806; G0103

== ENCOUNTER 2025-08-20 11:14 | Outpatient (CLI) | payer MEDICARE, SELFPAY ==
--- OUTSIDE RECORDS SUMMARY | 2024-08-20 04:00 | XMS_ITS ---
Author Organization [facility] Address [address] [place], [place] [id number] Care Team Providers Care Environmental Services Aide Name Role Phone JOHN COY Unavailable [phone] Gibran Diamond Unavailable Unavailable KIT NICKERSON Unavailable [phone] REASON FOR VISIT *Wound check Encounters Encounter Location Date Provider Diagnosis [address] [id number] 08/20/2024 KIT NICKERSON Plan Of Treatment No Information Progress Notes * REGINA GONSALVESDOB:1955 ( 69 yo M)Acc No.[id number]:08/20/2024 Patient: REGINA SALINAS Provider: Maame NICKERSON :1955 A ge:68 Y S ex:Male Date:08/20/2024 Address:[address] [place], [place] [phone] Subjective: * Chief Complaints: * 1 . *Wound check. * Medical History: Objective: * Vitals: Assessment: Plan: * Treatment: * Billing Information: * Visit Code: * Procedure Codes: * Electronic signature of ELIZABETH NICKERSON DPM on 08/20/2025 at 11:19 AM CDT Sign off status: Pending * Provider: Maame NICKERSON Date: 1 Generated for Virginia ocampo/Wesley/eTcameronsmitting on: 11:19 AM CDT
--- OUTSIDE RECORDS SUMMARY | 2025-08-20 11:19 | XMS_ITS | Patient Health Record ---
Author Organization [facility] Address [address] [place], [place] [address] Care Team Providers Care Truck Engine Assembler Name Role Phone DONNY RAMOSIC Unavailable [phone] Gibran Diamond Unavailable Unavailable CHALINOKIT MONTOYA Unavailable [phone] Allergies Allergen (clinical drug ingredient) Drug/Non Drug [...] Location Date Provider Diagnosis [facility] [place] [address] [place], [place] [phone] 08/24/2024 JOHN COY 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 ; Other hammer toe(s) (acquired), left foot M20.42 and Type 2 diabetes mellitus with foot ulcer E11.621 [facility] [place] [address] [place] [id number] 09/21/2024 JOHNTRENTON COY 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 ; Other hammer toe(s) (acquired), left foot M20.42 ; Type 2 diabetes mellitus with foot ulcer E11.621 and Encounter for other specified surgical aftercare Z48.89 [facility] [place] [address] [place] [id number] 12/21/2024 JOHNTRENTON COY Encounter for other specified [...] Date Coverage End Date Aet[employer] [address] [place]EV[place] [phone] [id number] REGINA GONSALVES Self - patient is the insured Medical (General) History Medical History History ICD Code ACID REFLUX ARTIFICIAL JOINTS OPEN SORES ARTHRITIS BACK TROUBLE DIABETIC Surgical History Surgery Date(Month/Year) RIGHT HIP REPLACEMENT 2019 LEFT KNEE REPLACEMENT 2020 BACK SURGERY 2021 NECK SURGERY 2021 SINUS 2018
--- OUTSIDE RECORDS SUMMARY | 2025-08-20 11:19 | XMS_ITS | Encounter Summary ---
Author Organization [facility] Address [facility] [place] [address] Care Team Providers Care Program Consultant Name Role Phone Gibran Diamond MD Primary Care Provider [phone] Carlitos Nolan MD Unavailable [phone] Meenu Quick APRN, CYLINDER PRESS OPERATOR-C Unavailable Encounter Details Date Type Department Care Team (Late st Contact Info) Description 04/25/2019 Abstract [facility] [address] [place] [address] , Generic ConversionMD Social History Tobacco Use Types Packs/Day Years Used Date Smoking Tobacco: Never Assessed Sex and Gender Information Value Date Recorded Sex Assigned at Not on file Legal Sex Male 5:43 PM CLEARANCE REP Gender Identity Not on file Sexual Orientation Not on file documented as of this encounter Plan of Treatment Not on file documented as of this encounter Visit Diagnoses Not on filedocumented in this encounter Additional Health Concerns Infection Onset Date Last Indicated Resolved Time COVID-19 Rule Out 10/22/2020 10/22/2020 10/23/2020 5:54 PM CLEARANCE REP COVID-19 Rule Out 08/26/2021 08/26/2021 08/26/2021 7:14 PM CDT documented as of this encounter Care Teams Program Consultant Relationship Specialty Start Date End Date Gibran Diamond MD [address] [place] [address] PCP - General INTERNAL MEDICINE 12/10/19 Carlitos Nolan MD [address] [place] [address] ORTHOPAEDICS 04/22/20 Meenu Quick APRN, CYLINDER PRESS OPERATOR-C [address] [facility] [address] [place] [address] NURSE PRACTITIONER 10/03/20 documented as of this encounter
--- OUTSIDE RECORDS SUMMARY | 2025-08-20 11:19 | XMS_ITS | Clinical Summary ---
Author Organization [facility] Address [address] [place] [address] Care Team Providers Care Guidance Adviser Name Role Phone Gibran Diamond MD Primary Care Provider [phone] Carlitos Nolan MD Unavailable [phone] Meenu Quick APRN, TRIM MECHANIC-C Unavailable Allergies Active Allergy Reactions Criticality Noted [...] nd due to stenosis of lumbar spine ([facility]) 06/17/2023 Essential (primary) hypertension 11/05/2022 SOB (shortness of breath) 12/28/2019 Difficulty walking 12/28/2019 Abnormal EKG 12/23/2019 Sleep apnea Overview (12/23/2019): does not use CPAP Seasonal allergies Hyperlipidemia Diabetes mellitus ([facility]) Chronic sinusitis Arthritis GERD (gastroesophageal [...] on file Legal Sex Male 5:43 PM PAINTER DECORATOR Gender Identity Not on file Sexual Orientation Not on file Last Filed Vital Signs Vital Sign Reading Time Taken Comments Blood Pressure 108/64 11/05/2022 10:52 AM PAINTER DECORATOR Pulse 89 11/05/2022 10:52 AM PAINTER DECORATOR Temperature 36.6 C (97.9 F) 10/25/2020 10:16 AM PAINTER DECORATOR Respiratory Rate 18 11/05/2022 10:5 2 AM PAINTER DECORATOR Oxygen Saturation 98% 08/10/2021 8:31 AM CDT Inhaled Oxygen Concentration - - Weight 134.4 kg (296 lb 6.4 oz) 022 10:52 AM PAINTER DECORATOR Height 195.6 cm (6' 5) 11/05/2022 10:5 2 AM PAINTER DECORATOR Body Mass Index 35.15 11/05/2022 10:52 AM PAINTER DECORATOR Plan of Treatment Health Maintenance Due Date [...] this topic Medical Devices Implanted Type Area Garment Parts Cutter Machine Device Identifier Shelf Expiration Date Model / Serial / Lot Head Allie Femoral V40 36mm 0mm - [id number] Implanted:Qty: 1 on 10/25/2020 by Carlitos Nolan MD at [facility] [employer] Right: Hip [employer] 09/05/2025 6570-0-13 6 / / [id number] Acetabular Shell Implanted:Qty: 1 on 10/25/2020 by Carlitos Nolan MD at [facility] Right: Hip [employer] 04/17/2023 702-04-64 H / / [id number] Hex Screw Implanted:Qty: 1 on 10/25/2020 by Carlitos Nolan MD at [facility] Right: Hip [employer] 12/15/2024 [id number] / / [id number] Hex Screw Implanted:Qty: 1 on 10/25/2020 by Carlitos Nolan MD at [facility] Right: Hip [employer] 06/19/2025 [id number] / / [id number] Polyethylene Insert Implanted:Qty: 1 on 10/25/2020 by Carlitos Nolan MD at [facility] Right: Hip [employer] 07/08/2025 623-00-36 H / / [id number] Hip Stem Implanted:Qty: 1 on 10/25/2020 by Carlitos Nolan MD at [facility] Right: Hip [employer] 06/25/2022 [id number] / / [id number] Explanted Type Area Garment Parts Cutter Machine Device Identifier Shelf Expiration Date Model / Serial / Lot Pin Allie Bone Dipak 170 X 4 - [id number] Explanted:Qty: 2 on 10/25/2020 by Carlitos Nolan MD at [facility] Pin Right: Hip [employer] [id number] / / [id number] Drill Bit Explanted:Qty: 1 on 10/25/2020 by Carlitos Nolan MD at [facility] Right: Hip [employer] [id number] / / Procedures Procedure Name Priority Date/Time [...] 2:23 PM 01/14/2020 2:23 PM Care Teams Guidance Adviser Relationship Specialty Start Date End Date Gibran Diamond MD [address] [place] [address] PCP - General INTERNAL MEDICINE 12/10/19 Carlitos Nolan MD [address] [place] [id number] ORTHOPAEDICS 04/22/20 Meenu Quick, DECISION SUPPORT ANALYST, TRIM MECHANIC-C [address] [facility] [address] [place] [address] NURSE PRACTITIONER 10/03/20
--- OUTSIDE RECORDS SUMMARY | 2025-08-20 11:19 | XMS_ITS | Encounter Summary ---
Author Organization [facility] Address [facility] [place] [address] Care Team Providers Care Vice President Of Instruction Name Role Phone Gibran Diamond MD Primary Care Provider [phone] Carlitos Nolan MD Unavailable [phone] Meenu Qucik APRN, GRIPPER ATTACHER-C Unavailable Encounter Details Date Type Department Care Team ([facility] Contact Info) Description 08/10/2021 [facility] [address] [place] [phone] Meenu Quick APRN, GRIPPER ATTACHER-C [address] [facility] [address] [place] [phone] Social History Tobacco Use Types Packs/Day Years Used Date Smoking Tobacco: Never Smokeless Tobacco: Never Alcohol Use Standard Drinks/Week Comments Yes 0 (1 standard drink = 0.6 oz pur e alcohol) 1-2 drinks a month Sex and Gender Information Value Date Recorded Sex Assigned at Not on file Legal Sex Male 5:43 PM INVESTOR RELATIONS ANALYST Gender Identity Not on file Sexual Orientation [...] Assessment Author Status No 10/25/2020 6:22 AM INVESTOR RELATIONS ANALYST Activ e documented as of this encounter [...] documented as of this encounter Care Teams Vice President Of Instruction Relationship Specialty Start Date End Date Gibran Diamond MD [address] [place] [address] PCP - General INTERNAL MEDICINE 12/10/19 Carlitos Nolan MD [address] [place] [phone] ORTHOPAEDICS 04/22/20 Meenu Quick APRN, GRIPPER ATTACHER-C [address] [facility] [address] [place] [address] NURSE PRACTITIONER 10/03/20 documented as of this encounter
[2025-08-20 11:38] LABS: Hematocrit 25.6 % (37.0-46.0); Hemoglobin 8.2 g/dL (12.4-15.3); Immature Platelet Fraction Pct 3.9 % (1.0-7.0); Mean Corpuscular HGB Conc 32.0 g/dL (32-36); Mean Corpuscular Hemoglobin 31.5 pg (27.0-31.0); Mean Corpuscular Volume 98.5 fL (78.0-102.0); Platelet Count Result 46 K/mm3 (150-420); Red Blood Count 2.60 M/mm3 (4.70-6.10); White Blood Count 2.6 K/mm3 (4.8-10.8)
[2025-08-20 12:18] LABS: CRP < 0.5 mg/dL (<1.0)
[2025-08-20 12:21] LABS: Band Neutrophils Percent 0 % (0-6); Eosinophils Absolute Manual 0.02 K/mm3 (0.02-0.50); Eosinophils Percent Manual 1 % (1-6); Lymphocytes Absolute Manual 1.37 K/mm3 (1.1-4.5); Lymphocytes Percent Manual 53 % (18-44); Monocytes Absolute Manual 0.05 K/mm3 (0.1-0.90); Monocytes Percent Manual 2 % (3-9); Neutrophils Absolute Manual 1.14 K/mm3 (1.3-6.7); Neutrophils Percent Manual 44 % (46-73); Total Cells Counted 100
[2025-08-21 08:09] LABS: Immunoglobulin A, Qn 349 mg/dL (61-437); Immunoglobulin G, Qn 1094 mg/dL (603-1613); Immunoglobulin M, Qn 50 mg/dL (20-172)
[2025-08-21 12:08] LABS: Anti-CCP Ab, IgG/IgA 7 units (0-19)
[2025-08-22 14:08] LABS: Folate, Hemolysate 262.0 ng/mL (Not Estab.); Folate, RBC 1036 ng/mL (>498); Hematocrit 25.3 % (37.5-51.0)
[2025-08-23 12:08] LABS: Albumin 3.9 g/dL (2.9-4.4); Alpha-1-Globulin 0.2 g/dL (0.0-0.4); Alpha-2-Globulin 0.6 g/dL (0.4-1.0); Gamma Globulin 1.2 g/dL (0.4-1.8)
[2025-08-23 14:08] LABS: ANA by IFA Rfx Titer/Pattern Negative (.)
[2025-08-24 13:09] LABS: Immunoglobulin A, Qn 347 mg/dL (61-437); Immunoglobulin G, Qn 1118 mg/dL (603-1613); Immunoglobulin M, Qn 54 mg/dL (20-172)
== END 2025-08-20 11:15 | disposition home or self-care (01) ==
LOC: CHSLAB 11:17
PROVIDERS: PCP Internal Medicine; Visit Provider Internal Medicine
DX: D61.818 Other pancytopenia (principal); M25.50 Pain in unspecified joint
CPT/HCPCS: 36415; 82747; 82784; 83921; 84155; 84165; 85025; 85055; 85652; 86037; 86038; 86140; 86200; 86334; 88184; 88185

== ENCOUNTER 2025-09-16 11:34 | Outpatient (CLI) | payer MEDICARE, SELFPAY ==
[2025-09-16 11:50] LABS: Hematocrit 23.3 % (37.0-46.0); Hemoglobin 7.3 g/dL (12.4-15.3); Immature Platelet Fraction Pct 3.7 % (1.0-7.0); Mean Corpuscular HGB Conc 31.3 g/dL (32-36); Mean Corpuscular Hemoglobin 30.9 pg (27.0-31.0); Mean Corpuscular Volume 98.7 fL (78.0-102.0); Platelet Count Result 61 K/mm3 (150-420); Red Blood Count 2.36 M/mm3 (4.70-6.10); White Blood Count 2.8 K/mm3 (4.8-10.8)
[2025-09-16 12:16] LABS: Band Neutrophils Percent 0 % (0-6); Lymphocytes Absolute Manual 1.79 K/mm3 (1.1-4.5); Lymphocytes Percent Manual 64 % (18-44); Monocytes Absolute Manual 0.08 K/mm3 (0.1-0.90); Monocytes Percent Manual 3 % (3-9); Neutrophils Absolute Manual 0.92 K/mm3 (1.3-6.7); Neutrophils Percent Manual 33 % (46-73); Total Cells Counted 100
--- OUTSIDE RECORDS SUMMARY | 2025-09-16 12:45 | XMS_ITS | Patient Health Record ---
Author Organization [facility] Address [address] [place], [place] [id number] Care Team Providers Care Sleeping Room Cleaner Name Role Phone DONNY RAMOSIC Unavailable [phone] DaraGibran jorgensen Unavailable Unavailable Allergies Allergen (clinical drug ingredient) Drug/Non Drug Allergy documented on EMR Reaction Allergy Type Onset Date Status sulfamethoxazole / trimethoprim Sulfamethoxazole/Tr imethoprim Unknown Drug Allergy Active Reason For Referral No Information Medications Medication SIG (Take, Route, Frequency, Duration) Notes Start Date End Date Status metFORMIN HCl 500 MG Tablet 1 tablet with a meal Orally Once a day Active Escitalopram Oxalate 10 MG Tablet 1 tablet Orally Once a day A ctive Lovastatin 20 MG Tablet 1 tablet with th e evening meal Orally Once a day Active Cephalexin 500 MG Capsule 1 capsule Oral ly three times a day; Duration: 7 days Active Telmisartan 20 MG Tablet 2 tablets Orall y Once a day Active Montelukast Sodium 10 MG Tablet 1 tablet Orally Once a day A ctive Celecoxib 200 MG Capsule 1 capsule with food Orally Once a day Active Glimepiride 2 MG Tablet 1 tablet with br eakfast or the first main meal of the day Orally Once a day Active Mounjaro 7.5 MG/0.5ML Solution Pen-injector as directed Subcutaneous Active Immunizations Vaccine Route Administration Date Status Comme nts Influenza, unspecified formulation Unknown 08/29/2023 A dministered Encounters Encounter Location Date Provider Diagnosis [facility] [address] [place], [place] [id number] 09/21/2024 JOHN COY 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 ; Other hammer toe(s) (acquired), left foot M20.42 ; Type 2 diabetes mellitus with foot ulcer E11.621 and Encounter for other specified surgical aftercare Z48.89 [facility] [address] [place], [place] [id number] 12/21/2024 JOHN IGNACIOEmily Encounter for other specified surgical aftercare Z48.89 ; Hammer toe of left foot M20.42 ; Plantar wart B07.0 and Type 2 diabetes mellitus with foot ulcer E11.621 Assessments Encounter Date Diagnosis (ICD Code) Assessment Notes Treatment Notes Treatment Clinical Notes Section Notes 09/21/2024 Non-pressure chronic ulcer of other part [...] Date Coverage End Date [employer] [address] [place] [phone] [id number] REGINA GONSALVES Self - patient is the insured Medical (General) History Medical History History ICD Code ACID REFLUX ARTIFICIAL JOINTS OPEN SORES ARTHRITIS BACK TROUBLE DIABETIC Surgical History Surgery Date(Month/Year) RIGHT HIP REPLACEMENT 2019 LEFT KNEE REPLACEMENT 2020 BACK SURGERY 2021 NECK SURGERY 2021 SINUS 2018
--- OUTSIDE RECORDS SUMMARY | 2025-09-16 12:45 | XMS_ITS | Clinical Summary ---
Author Organization [facility] Address [address] [place] [address] Care Team Providers Care Hand Trimmer Name Role Phone Gibran Diamond MD Primary Care Provider [phone] Darryl Han MD Unavailable Allergies Active Allergy Reactions Criticality Noted Date Comments Adhesive Itching,Rash Medium 11/05/2022 Prineo [facility] Tape Medications sitaGLIPtin-me tformin (JANUMET) 50-1,000 mg per tablet Take 1 tablet by mouth 2 (two) times a day with meals. Active cetirizine (ZyrTEC) 10 mg tablet Take 10 mg by mouth daily. Active lovastatin (MEVACOR) 10 mg tablet Take 10 mg by mouth nightly. Active montelukast (SINGULAIR) 10 mg tablet Take 10 mg by mouth nightly. Active tirzepatide (Mounjaro) 15 mg/0.5 mL pen injector injection Inject 0.5 mL (15 mg total) under the skin Active empagliflozin (JARDIANCE) 10 mg tablet 1 tablet (10 mg total) Active celecoxib (CeleBREX) 200 mg capsule Take 1 capsule (200 mg total) by mouth 2 (two) times a day Active escitalopram (LEXAPRO) 10 mg tablet Take 1 tablet (10 mg total) by mouth daily Active rosuvastatin (CRESTOR) 5 mg tablet Take 1 tablet (5 mg total) by mouth daily Active metoprolol XL (TOPROL-XL) 25 mg extended release tablet Take 1 tablet (25 mg total) by mouth daily Active levoFLOXacin (LEVAQUIN) 500 mg tabletIndicati ons:MDS (myelodysplast ic syndrome) (HCC) Take 1 tablet (500 mg total) by mouth daily 30 tablet 09/07/20 025 Active vitamin B complex 100 2-herbs 100 mg tablet Take 1 tablet by mouth daily. 025 Discontinued ascorbic acid (ascorbic acid with juan hips) 500 mg tablet Take 500 mg by mouth daily. 025 Discontinued ALPRAZolam (XANAX) 0.25 mg tablet 06/20/20 025 Discontinued acetaminophen (TYLENOL) 500 mg tablet Take 1 tablet (500 mg total) by mouth every 4 (four) hours as needed 025 Discontinued amoxicillin 500 mg tablet/capsule TAKE 4 CAPSULES BY MOUTH ONE HOUR PRIOR TO APPOINTMENT 07/19/20 025 Discontinued cefdinir (OMNICEF) 300 mg capsule Take 1 capsule (300 mg total) by mouth every 12 (twelve) hours 07/12/20 025 Discontinued Active Problems Problem Noted Date Diagnosed Date Chronic maxillary sinusitis 05/21/2017 Assessment & Plan (07/30/2017 8:32 AM CDT): Patient returns for 2nd postoperative visits status post septoplasty, turbinate reduction and maxillary antrostomy with evacuation of sinus contents. Patient states he is doing great. He is breathing comfortably through his nasal airway. He denies any epistaxis, mucopurulent drainage or paranasal sinus pressure/pain. Examination reveals excellent healing. Patient is to continue with saline sprays. Patient can follow back up as needed. Assessment & Plan (05/21/2017 11:01 AM CDT): Patient demonstrated moderate mucosal changes within the right maxillary sinus cavity and right ethmoid air cells with moderate deviation of the nasal septum to the left and bilateral inferior turbinate hypertrophy. Patient's symptoms have been recurrent and refractory to medical management. Recommend patient undergoing a right endoscopic maxillary antrostomy using balloon sinuplasty with nasal septal reconstruction and partial bilateral inferior turbinate reduction. All questions were answered to what appeared to be patient's understanding and satisfaction. After the procedure was explained in full the potential risk, complications, benefits and alternatives patient would like to proceed. Patient will be scheduled in a timely fashion. Nasal septal deviation 05/21/2017 Assessment & Plan (07/12/2017 12:41 PM CDT): Patient continues to follow an unremarkable postoperative course. Mild postoperative crusting removed from bilateral nasal cavity. Patient is performing nasal hygiene care as prescribed by Dr. Christopher. Patient will follow back up in 2 weeks. Assessment & Plan (06/26/2017 2:23 PM CDT): Patient had unremarkable postoperative course. The septal splints were removed. Patient is breathing much more comfortably through his nasal airway. Patient will be placed on nasal hygiene care and an daily saline nasal sprays to promote mucociliary clearance. Patient will follow back up in 2 weeks. Hypertrophy of inferior nasal turbinate 05/21/20 17 Laryngopharyngeal reflux (LPR) 05/21/2017 Assessment & Plan (05/21/2017 11:03 AM CDT): Increase Zantac to 300 mg b.i.d.. Patient was provided with educational material regarding reflux precautions. Patient was instructed to refrain from eating a meal approximately 3 hours prior to bedtime. Patient was instructed to elevate the head of the bed by approximately 8 inches. Patient was to refrain from consuming spicy greasy fatty foods, dairy products, and excessive caffeine use. Patient was also advised to increase water consumption. Patient was also instructed on weight reduction and exercise regimen. Patient was also instructed on the importance of compliance with medications. Sleep-disordered breathing 05/21/2017 Assessment & Plan (05/21/2017 11:05 AM CDT): Patient expresses he has a very disrupted sleep pattern. He admits to not feeling well rested upon awakening, daytime somnolence and fatigue. Patient is experiencing moderate to severe snoring with witnessed apnea. Patient will require a sleep study should his symptoms continue to persist post surgery. Patient was made aware that straightening his nasal septum and reducing his inferior turbinates will reduce his nasal airway resistance and help his upper airway. This may resolve some of his sleep disordered breathing symptoms. Encounters Date Type Department Care Team Description 09/10/2025 [facility]phone [facility] [facility] Floor [address] [place] [address] Darryl Han MD 09/09/2025 [facility] [address] [phone] Leonie Skelton V. 09/09/2025 Orders Only [facility] Out[facility] [address] [place] [address] Darryl Han MD MDS (myelodysplastic syndrome) (HCC) 09/08/2025 2:42 PM CDT - 09/08/2025 11:59 PM CDT Hospital Encounter [facility] [address] [place] [address] MDS (myelodysplastic syndrome) (HCC) Discharge Disposition: Discharge to home or self care 09/08/2025 11:00 AM CDT Infusion [facility] - Infusion [address] [place] [id number] MDS (myelodysplastic syndrome) (HCC) 09/08/[address] [facility] Medicine Pathology Outreach [address] [place] [address] Darryl Han MD MDS (myelodysplastic syndrome) (HCC) 09/07/2025 1:40 PM CDT [facility] [address] [place] [phone] Darryl Han MD MDS (myelodysplastic syndrome) (HCC) (Primary Dx); Acute myeloid leukemia not having achieved remission (HCC) 09/07/2025 1:00 PM CDT Lab [facility] - Lab Collection [facility] [address] [address] Pancytopenia; MDS (myelodysplastic syndrome) (HCC) 09/07/2025 12:[address] [facility] Medicine Oncology Lab [address] [place] [phone] 08/26/2025 Orders Only [facility] Bone Marrow Transplant [address] [place] [phone] James Murrieta RN 08/25/2025 Orders Only [facility] Bone Marrow Transplant [address] [facility] [address] [place] [address] Darryl Han MD Pancytopenia (Primary Dx) 08/25/2025 Orders Only [facility] [place] [facility] [address] [place] [phone] Veronica Fields Pancytopenia (Primary Dx) from Last 3 Months Surgical History Surgery Date Site/Laterality Comments VASECTOMY SINUS SURGERY 06/20/2017 right sided endoscopic maxillary antrostomy, septal reconstruction, Andreas turbinate reduction Medical History Medical History Date Comments Hyperlipidemia Family History Medical History Relation Name Comments Cancer Brother Diabetes Brother Heart disease Father Diabetes Mother Diabetes Mother's Brother Relation Name Status Comments Brother Father Mother Mother's Brother Other Alive Renal Cell Carc inoma Social History Tobacco Use Types Packs/Day Years Used Date Smoking Tobacco: Never Smokeless Tobacco: Never Alcohol Use Standard Drinks/Week Comments Yes 1 (1 standard drink = 0.6 oz pur e alcohol) occaisonal Sex and Gender Information Value Date Recorded Sex Assigned at Not on file Legal Sex Male 8:39 AM CDT Gender Identity Not on file Sexual Orientation Not on file Obstetrics History Last Filed Vital Signs Vital Sign Reading Time Taken Comments Blood Pressure 132/71 09/08/2025 11:12 AM CDT Pulse 81 09/08/2025 11:12 AM CDT Temperature 36.5 C (97.7 F) 09/07/2025 1:21 PM CDT Respiratory Rate 18 09/08/2025 11:12 AM CDT Oxygen Saturation 96% 09/08/2025 11:12 AM CDT Inhaled Oxygen Concentration - - Weight 129 kg (284 lb 6.3 oz) 09/08/2025 10:39 A M CDT Height 193.4 cm (6' 4.14) 09/07/2025 1:21 PM CD T Body Mass Index 34.49 09/07/2025 1:21 PM CDT Plan of Treatment Health Maintenance Due Date Last Done Comments Colon Cancer Screening-Colonoscopy 1955 Depression Screening 1955 Fall Risk Assessment 1955 Hepatitis C Screening 1955 Prostate Cancer Screening-PSA 1955 DTaP/Tdap/Td Vaccine (1 - Tdap) 1968 Hepatitis B Screening 1975 Pneumococcal vaccine 65+ (1 of 2 - PCV) 1976 Zoster Vaccine (1 of 2) 1976 Well Visit 65+ 2022 Influenza Vaccine (#1) 2025 Procedures Procedure Name Priority Date/Time Associated Diagnosis Comments SURGICAL PATHOLOGY Routine 09/08/2025 11 :11 AM CDT MDS (myelodysplastic syndrome) (HCC) FLOW LEUKEMIA/LYMPHOMA Routine 11:11 AM CDT MDS (myelodysplastic syndrome) (HCC) CYTOGENETICS Routine 09/08/2025 11:11 AM CDT MDS (myelodysplastic syndrome) (HCC) EGFR STAT 09/07/2025 1:05 PM CDT Pancytopenia MANUAL DIFFERENTIAL STAT 09/07/2025 1 :05 PM CDT Pancytopenia URIC ACID Routine 09/07/2025 1:05 PM CDT MDS (myelodysplastic syndrome) (HCC) MAGNESIUM Routine 09/07/2025 1:05 PM CDT MDS (myelodysplastic syndrome) (HCC) PHOSPHORUS Routine 09/07/2025 1:05 PM CDT MDS (myelodysplastic syndrome) (HCC) MISCELLANEOUS MOLECULAR SEND-OUT REQUEST Routine 09/07/2025 1:05 PM CDT MDS (myelodysplastic syndrome) (HCC) CBC WITH AUTO DIFFERENTIAL STAT 09/07/2025 1:05 PM CDT Pancytopenia COMPREHENSIVE METABOLIC PANEL STAT 09/07/2025 1:05 PM CDT Pancytopenia LACTATE DEHYDROGENASE STAT 09/07/2025 1:05 PM CDT Pancytopenia TYPE AND SCREEN STAT 09/07/2025 1:05 PM CDT Pancytopenia CMV, IGG STAT 09/07/2025 1:05 PM CDT Pancytopenia FLT3 MUTATION DETECTION BY PCR Routine 09/07/2025 12:42 PM CDT from Last 3 Months Results * Cytogenetics Bone marrow (09/08/2025 11:11 AM CDT) Bone marrow (Bone Marrow Biopsy) 09/08/2025 11:11 AM CDT 09/08/2025 11:11 AM CDT Narrative [facility] - CYTOGENETICS - 09/13/2025 3:18 PM CDT [facility] results best viewed via link to PDF [facility] Department of Pathol [address] [place] [address] Patient Information Name: JEFFERSON HILLMAN Gender: Mohit : 1955 (Age: 69) Tissue: Bone Marrow w/ FISH Visit Information Hospital #: [id number] Facility: [facility] Service: [facility] Location: UNKNOWN Patient Type: [facility] Specimen Information: Culture #: [id number] Date Collected: 09/08/2025 Date Accessioned: 09/09/2025 Date Ordered: 09/08/2025 Physician(s): Darryl Quintanilla MD Processin hours unstimulated Indication: MDS Specimen Quality: Low cell count Adequate: FISH CLINICAL REPORT FLUORESCENCE IN-SITU HYBRIDIZATION [FISH] Karyotype: nuc robbie (EGR1)x2[200],(Q6B329)x2[200],(D8Z2,K51E013)x2[200],(ETV6)x2[200], (S25D297,LAMP1)x2[200],(TP53)x2[200] Diagnosis: FISH FINDINGS: NO EVIDENCE OF DELETION/MONOSOMY OF EGR1 (5q), Z8I612 (7q), R75W619/LAMP1 (13q), TP53 (17p) OR T87S537 (20q) NO EVIDENCE OF ETV6 REARRANGEMENT NO EVIDENCE OF TRISOMY 8 INTERPRETATION: FISH analysis was performed with a panel of [employer] and [employer] probes for MDS and is interpreted as NORMAL. 1) FISH evaluation for a 5q deletion was performed on nuclei with the EGR1,K0Q976/[id number] Dual Color Probe ([employer] for EGR1 at 5q31.1 and the control U7X387/T1C2809 at 5p15.31 and is interpreted as NORMAL. Two EGR1 hybridization signals and two Z7N715/U6T1203 control hybridization signals were observed in 199/200 nuclei, which is within the normal range established for this probe in the Clinical Genomics Laboratory at [facility]. Up to 3.1% of cells in normal samples can show an apparent 5q deletion using this probe. A normal EGR1 FISH finding can result from the absence of a 5q deletion, from a 5q deletion that does not involve the region to which this probe hybridizes or from an insufficient number of neoplastic cells in the specimen. 2) FISH evaluation for a 7q deletion was performed on nuclei with the LSI J0C675/D7Z1 Dual Color Probe ([employer] for M1C140 at 7q31 and the control D7Z1 at 7p11.1-q11.1 and is interpreted as NORMAL. Two G9Z166 hybridization signals and two D7Z1 control hybridization signals were observed in 200/200 nuclei, which is within the normal range established for this probe in the Clinical Genomics Laboratory at [facility]. Up to 1% of cells in normal samples can show an apparent 7q deletion using this probe. A normal I5R959 FISH finding can result from the absence of a 7q deletion, from a 7q deletion that does not involve the region to which this probe hybridizes or from an insufficient number of neoplastic cells in the specimen. 3) FISH evaluation for trisomy 8 was performed on nuclei with the probe mix of D8Z2 Alpha Satellite DNA Probe at 8p11.1-q11.1 and the LSI J78B934 Probe ([employer] and is interpreted as NORMAL. Two D8Z2 hybridization signals were observed in 200/200 nuclei, which is within the normal range established for this probe in the Clinical Genomics Laboratory at [facility]. Up to 1% of cells in normal samples can show apparent trisomy 8 using this probe. A normal chromosome 8 FISH finding can result from the absence of trisomy 8 or from an insufficient number of neoplastic cells in the specimen. 4) FISH evaluation for an ETV6 rearrangement was performed on nuclei with the LSI ETV6(TEL) Dual Color, Break Apart Rearrangement Probe ([employer] at 12p13 and is interpreted as NORMAL. No rearrangement was observed in 200/200 nuclei, which is within the normal range established for this probe in the Clinical Genomics Laboratory at [facility]. Up to 1% of cells in normal samples can show an apparent ETV6 rearrangement using this probe. A normal ETV6 FISH finding can result from the absence of an ETV6 rearrangement, from a variant ETV6 rearrangement or from an insufficient number of neoplastic cells in the specimen. 5) FISH evaluation for a 13q deletion was performed on nuclei with the LSI V45S267 Probe ([employer] at 13q14.2 and the LAMP1 probe at 13q34 and is interpreted as NORMAL. Two O26P982 hybridization signals and two LAMP1 hybridization signals were observed in 200/200 nuclei, which is within the normal range established for this probe in the Clinical Genomics Laboratory at [facility]. Up to 4% of cells in normal samples can show apparent 13q deletion using this probe. A normal H39G397 FISH finding can result from the absence of a 13q deletion, from a 13q deletion that does not involve the region to which this probe hybridizes or from an insufficient number of neoplastic cells in the specimen. 6) FISH evaluation for a TP53 deletion was performed on nuclei with the LSI TP53 Dual Color Probe ([employer] for TP53 at 17p13.1 and the control D17Z1 at 17p11.1-q11.1 and is interpreted as NORMAL. Two TP53 hybridization signals and two D17Z1 control hybridization signals were observed in 200/200 nuclei, which is within the normal range established for this probe in the Clinical Genomics Laboratory at [facility]. Up to 2.7% of cells in normal samples can show an apparent TP53 deletion using this probe. A normal TP53 FISH finding can result from the absence of a TP53 deletion, from a TP53 deletion that does not involve the region to which this probe hybridizes or from an insufficient number of neoplastic cells in the specimen. 7) FISH evaluation for a 20q deletion was performed on nuclei with the probe mix of D8Z2 Alpha Satellite DNA Probe at 8p11.1-q11.1 and the LSI B29Z568 Probe ([employer] at 20q12 and is interpreted as NORMAL. Two V59W677 hybridization signals were observed in 200/200 nuclei, which is within the normal range established for this probe in the Clinical Genomics Laboratory at [facility]. Up to 6% of cells in normal samples can show an apparent 20q deletion using this probe. A normal J79T619 FISH finding can result from the absence of a 20q deletion, from a 20q deletion that does not involved the region to which this probe hybridizes or from an insufficient number of neoplastic cells in the specimen Chromosome analysis is pending and will be reported separately. The FISH findings must be interpreted within the context of the pathologic and clinical findings. Follow-up evaluation is recommended. This test was developed and its performance characteristics determined by [facility]. It has not been cleared or approved by the FDA. The laboratory is regulated under CLIA as qualified to perform high-complexity testing. This test is used for clinical purposes. It should not be regarded as investigational or for research. Chromosome analysis and Fluorescence In Situ Hybridization (FISH) analysis are performed using the Leica Cytovision Imaging System. Report Electronically Reviewed and Signed Out By Vu Tucker, PhD, FACMGDate Reported: 09/13/2025ssociate Professor, Division of Genomic & Molecular Pathology Darryl Quintanilla MD LAB GENETIC TESTING Final Result [facility] - CYTOGENETICS [address] [place] [address] * Flow Leukemia/Lymphoma Bone marrow (09/08/2025 11:11 AM CDT) Laguerre Stain Test Completed Leukemia/Lymp eduardo Result See separate Surgical Pathology report. [facility] Bone marrow 09/08/2025 11:1 1 AM CDT 09/08/2025 3:45 PM CDT Narrative [facility] - 09/09/2025 7:15 AM CDT Tube information: Green top (Sodium Heparin) us Darryl Quintanilla MD LAB PATHOLOG Y ORDERABLES Final Result [facility] [place] [address] * Surgical pathology (09/08/2025 11:11 AM CDT) Bone marrow (Bone Marrow Biopsy) 09/08/2025 11:11 AM CDT 09/08/2025 1:15 PM CDT Narrative PATHOLOGY [facility] - 09/10/2025 4:01 PM CDT EPIC results best viewed via link to PDF [facility] Malissa Mathew Laboratory [place] [address] Note to Patients: This report may contain a detailed description of human tissue sent by a health care provider to the laboratory for pathologic evaluation. The content of this report is essential for diagnosis and may provide important critical findings. This information may be unfamiliar to patients to review without a medical professional present. It is advised that the patient review this report in the presence of a health care provider who can answer questions and explain the details. SURGICAL PATHOLOGY REPORT FINAL WITH ADDENDUM Patient Name: JEFFERSON HILLMAN Gender: M : 1955 (Age: 69) Address: [address] [place] [address] Hospital #: [id number] Taken:09/08/2025 Received:09/08/2025 Reported: 09/10/2025 Patient Type: [facility] SPECIMEN Service: Laboratory Location: Physician(s): Darryl Quintanilla MD Diagnosis: Bone marrow, left posterior iliac crest, core biopsy, clot and aspirate: - Hypercellular bone marrow with panhyperplasia - Multilineage dyspoiesis - Increased blasts - See comment and flow cytometry addendum jxrr/09/10/2025 14:42 By this signature, I attest that the above diagnosis is based upon my personal examination of the slides(and/or other material indicated in the diagnosis). Emery Maldonado M.D. Report Electronically Reviewed and Signed Out By Emery Maldonado M.D. 09/10/2025 16:01:14 Diagnosis Comment The overall cellularity is increased for age and there is multilineage dyspoiesis in the setting of increased blasts. The findings are compatible with a myelodysplastic syndrome with increased blasts, and correlation with cytogenetic/ molecular genetic studies is recommended. For details on the peripheral blood smear (if submitted), bone marrow aspirate, and core biopsy, please see the attached synoptic report. If applicable, correlation with concurrent flow cytometry (Addenda/Procedures below), cytogenetics/FISH, and molecular studies is suggested for full evaluation. Microscopic Description and Comment: Immunohistochemical stains (with appropriate controls) were performed on the core biopsy specimen. CD34 highlights blasts which comprise approximately 10-15% of overall marrow cellularity. Enzyme cytochemistries (with appropriate controls) were performed on the aspirate. The blasts are positive for myeloperoxidase and negative for NBE. A preliminary diagnosis was administered to Dr. Ortega by Dr. Aguiar via email on 09/09/2025 at 3:45 PM. Microscopic examination substantiates the above cited diagnosis. Keith Aguiar M.D. History: The patient is a 69-year-old man undergoing evaluation of pancytopenia. Operative procedure: Bone marrow biopsy. Specimen(s) Received: A: Bone marrow biopsy, left posterior iliac crest B: Bone Marrow Clot - BJ C: Bone marrow, left aspirate for flow cytometry Gross Description: Received in two formalin jars labeled with the patient's identifiers. A. Received in formalin, labeled LPIC core and consists of two red cores of bone measuring 0.4-0.5 cm in length by 0.2 cm in diameter. Labeled A1. EDTA decalcification.. Jar 0. B. Received in formalin, labeled LPIC clot and consists of a 2.2 x 1.9 x 0.5 cm fragment of hemorrhagic material. Labeled B1. Jar 0. elsw/09/08/2025 14:57 PA(s): Eva Nath CBC: Date: 09/07/25 WBCs: 3.14x10^3/mcl Hemoglobin: 8.5g/dl Hematocrit: 26.0% Platelets: 58x10^3/mcl Mean corpuscular volume (MCV): 96.4fl Red cell distribution width (RDW-CV): 19.1% Neutrophils, absolute: 1.68 K/cumm Lymphocytes, absolute: 1.38 K/cumm Monocytes, absolute: 0.06 K/cumm Eosinophils, absolute: 0.02 K/cumm Basophils, absolute: 0.00 K/cumm Neutrophils: 53.5% Lymphocytes: 44.0% Monocytes: 1.8% Eosinophils: 0.6% Basophils: 0.1% Peripheral blood smear (Laguerre-Giemsa): The peripheral blood morphology reflects the CBC values. Bone marrow aspirate smear (Laguerre-Giemsa stain): Quality: Adequate Spicules: Present Marrow cellularity: Increased Myeloid maturation: Abnormal lobation, Abnormal granulation, Increased blasts Erythroid maturation: Left-shifted, Abnormal nuclear contours, Nuclear budding Myeloid/Erythroid Ratio: Decreased Megakaryocyte number: Increased Megakaryocytic maturation: Abnormal lobation Lymphocytes: Normal Plasma cells: Normal Iron: Gale Score 0-2 (Decreased). Gale score is a grading method for interpretation of bone marrow iron stain and provides an assessment of total bone marrow iron stores. No ring sideroblasts present Differential count: Total # of Cells Counted:200 Blasts: 17 Promyelocytes: 3 Myelocytes+Metamyelocytes:3 Bands+Neutrophils:12 Eosinophils: 1 Basophils: 0 Plasma cells: 2 Lymphocytes: 0 Monocytes: 0 Erythroids: 62 Bone marrow core biopsy (decalcified, H&E and Leder stains): Left, iliac crest Quality: Adequate Cellularity: 60% Myeloid maturation: Increased Leder-negative mononuclear cells, consistent with blasts Erythroid maturation: Present The Leder stain shows that the Myeloid/Erythroid Ratio is: Decreased Megakaryocyte number: Increased Megakaryocytic maturation: Abnormal lobation The Leder stain is used to assess for lymphoid aggregates: None Plasma cells: Normal Reticulin and Trichrome stains show: Mild fibrosis (MF-1) CLOT SECTION: The bone marrow clot section including Leder and H&E stains are: Similiar in cellularity and composition to the bone marrow core By this signature, I attest that the above diagnosis is based upon my personal examination of the slides(and/or other material). Addenda/Procedures Flow Cytometry Ordered:09/08/2025Status:Signed OutFlow Cytometry Complete:09/09/2025y:Emery Maldonado M.D.Flow Cytometry Signed Out: 09/10/2025 Diagnosis Bone marrow, aspirate for flow cytometry - Increased myeloblast population identified (20% of total cellular events) Comment Specimen quality: Adequate Flow cytometry identifies an immunophenotypically abnormal blast population that is consistent with myeloid differentiation comprising 20% of total cellular events. Antigens expressed are: CD45 (dim), CD34, CD33, CD117, HLA-DR, CD38, CD13 (dim) Antigens not expressed are: CD19, CD20, Wamsutter, Lambda, CD10, CD5, CD200, CD2, CD3, CD4, CD8, CD56, TCR-GD, CD16, CD14, CD64, CD11b, CD15, CD123, TdT, (C)CD79a, (C)CD22 Targetable AntigenExpression (%)Expression (Intensity)CD73%-[id number]%[id number]<1%-DISCLAIMER: Immunotherapy can interfere with antigen detection in this assay. Correlation with clinical history is required. All antigen expression measurements are surface unless noted otherwise. Flow cytometry analysis shows the lymphocyte-gated events account for 19% of the overall cellularity of the specimen. The CD19+CD20+ B-cell population comprises 12% of lymphocytes, is polytypic, and displays no significant co-expression of CD5 or CD10. The CD3+ T-cells comprise 76% of lymphocytes and show no significant loss of cheney T-cell antigens. The CD4 to CD8 ratio is within normal limits. There is a small population of CD56+ events (10% of lymphocytes) consistent with natural killer cells. There is no overt increase in CD38+ plasma cells. Correlation with morphology (if submitted), clinical and laboratory data is recommended. A malignant process cannot be excluded solely on the basis of this assay. A Laguerre-Giemsa stained slide from the flow cytometry specimen was examined for internal quality rep purposes. Flow cytometry was performed using antibodies to the following cellular antigens: CD45, CD34, CD19, CD20, Wamsutter, Lambda, CD10, CD5, CD200, CD38, CD2, CD3, CD4, CD7, CD8, CD56, TCR-GD, CD16, CD13, CD14, CD64, HLA-DR, CD11b, CD15, CD123, CD117, CD33, TdT, (C)CD79a, (C)CD22. Total antigens analyzed: 30 jlf By this signature, I attest that the above diagnosis is based upon my personal examination of the slides(and/or other material indicated in the diagnosis). Emery Maldonado M.D.Report Electronically Reviewed and Signed Out By Emery Maldonado M.D. 09/10/2025 15:56:52Keith Aguiar M.D. The performance characteristics of some immunohistochemical stains, fluorescence in-situ hybridization tests and immunophenotyping by flow cytometry cited in this report (if any) were determined by the Surgical Pathology and Flow Cytometry Departments at [facility] as part of an ongoing nurse quality program and in compliance with federally mandated regulations drawn from the Clinical Laboratory Improvement Act of 1988 (CLIA '88). Some of these tests rely on the use of analyte specific reagents and are subject to specific labeling requirements by the US Food and Drug Administration. Such diagnostic tests may only be performed in a facility that is certified by the Department of Health and Human Services as a high complexity laboratory under CLIA '88. The FDA has determined that such clearance or approval is not necessary. This test is used for clinical purposes. It should not be regarded as investigational or for research. Nevertheless, federal rules concerning the medical use of analyte specific reagents require that the following disclaimer be attached to the report: This test was developed and its performance characteristics determined by the Surgical Pathology and Flow Cytometry Departments of [facility]. It has not been cleared or approved by the U. S. Food and Drug Administration. IMAGES AND SCANNED DOCUMENTS, IF INCLUDED, ONLY VIEWABLE IN PDF VERSION OF REPORT Darryl Quintanilla MD LAB PATHOLOG Y ORDERABLES Final Result [facility] [address] [place], [place] [phone] * eGFR (09/07/2025 1:05 PM CDT) eGFR 75 >=60 mL/min/1. 73 m2 Comment: Interpretive Data Reference Interval Normal >/= 90 mL/min/1.73m2 Mildly decreased* 60 - 89 mL/min/1.73m2 Mildly to moderately decreased 45 - 59 mL/min/1.73m2 Moderately to severely decreased 30 - 44 mL/min/1.73m2 Severely decreased 15 - 29 mL/min/1.73m2 Kidney Failure < 15 mL/min/1.73m2 *Relative to young adult level Estimated glomerular filtration rate is determined by the 2020 CKD-EPI equation recommended by the National Kidney Foundation (A Unifying Approach to GFR Estimation: Recommendations of the NKF-ASK Task Force on Reassessing the Inclusion of Race in Diagnosing Kidney Disease, JASN 2020). The CKD-EPI equation should not be used for patients with unstable renal function and has not been validated in children and those over 70. Current interpretive data was last reviewed 2021. Blood 09/07/2025 1:05 PM CDT 09/07/2025 1:20 PM CDT Darryl Quintanilla MD LAB BLOOD OR DERABLES Final Result Performing Organization Address [facility] Co de Phone Number [facility] [place] [address] * CMV, IgG Blood (09/07/2025 1:05 PM CDT) Pathologist [facility] CMV IgG Negative Negative Comment: Interpretive Data Negative - Individuals with negative CMV IgG results are presumed to not have had prior exposure or infection with CMV and are, therefore, considered susceptible to primary infection. Equivocal - Equivocal results may occur during acute infection or may be due to nonspecific binding reactions. Submit an additional sample for testing if clinically indicated. Positive - Indicates presence of detectable CMV IgG antibody. Results indicate past or recent CMV infection. Blood 09/07/2025 1:05 PM CDT 09/08/2025 8:49 AM CDT Darryl Quintanilla MD LAB MICROBIOLOGY - GENERAL ORDERABLES Final Result Performing Organization Address [facility] Co de Phone Number [facility] [place] [address] * (ABNORMAL) CBC with auto differential (09/07/2025 1:05 PM CDT) Pathologist [facility] WBC 3.14(L) 3.80 - 9.90 K/cumm Comment:Testing performed by : [facility], [address] [place], [place] [phone] Hgb 8.5(L) 13.0 - 17.5 g/dL CERNER BJ Comment:Testing performed by : [facility], [address] [place], [place] [phone] Hct 26.0(L) 38.9 - 50.3 % CERNER BJ Comment:Testing performed by : [facility], [address] [place], [place] [phone] Plt 58(L) 150 - 400 K/cumm CERNER BJ Comment:Testing performed by : [facility], [address] [place], [place] [phone] MPV 7.8 6.8 - 10.4 fL CERNER BJ Comment:Testing performed by : [facility], [address] [place], [place] [phone] RBC 2.70(L) 4.30 - 5.80 M/cumm CERNER BJ Comment:Testing performed by : [facility], [address] [place], [place] [phone] MCV 96.4 81.3 - 96.4 fL CERNER BJ Comment:Testing performed by : [facility], [address] [place], [place] [phone] MCH 31.4 27.1 - 33.3 pg CERNER BJ Comment:Testing performed by : [facility], [address] [place] [address] MCHC 32.5 32.3 - 35.7 g/dL CERNER BJ Comment:Testing performed by : [facility], [address] [place], [place] [phone] RDW CV 19.1(H) 11.1 - 14.9 % CERNER BJ Comment:Testing performed by : [facility], [address] [place], [place] [phone] NRBC abs N/A 0.00 - 0.01 K/cumm CERNER BJ Comment:Testing performed by : [facility], [address] [place], [place] [phone] Blood 09/07/2025 1:05 PM CDT 09/07/2025 1:17 PM CDT Darryl Quintanilla MD LAB BLOOD OR DERABLES Edited Result - Final [facility] [place] [address] * (ABNORMAL) Manual Differential (09/07/2025 1:05 PM CDT) Neutrophil abs 1.68 1.50 - 6.50 K/cumm Comment:Testing performed by : [facility], [address] [place], [place] [phone] Lymphocyte abs 1.38 0.80 - 3.30 K/cumm [facility] Comment:Testing performed by : [facility], [address] [place] [phone] Monocyte abs 0.06(L) 0.20 - 0.80 K/cumm CERNER BJ Comment:Testing performed by : [facility], [address] [place] [phone] Eosinophil abs 0.02 0.00 - 0.50 K/cumm CERNER BJ Comment:Testing performed by : [facility], [address] [place], [place] [phone] Basophil abs 0.00 0.00 - 0.10 K/cumm CERNER BJ Comment:Testing performed by : [facility], [address] [place] [phone] Neutrophil pct 53.5 % CERNER BJ Comment: Interpretive Data Percent cell count reference ranges are not reported, since discordance with absolute values may lead to misinterpretation of CBC data. Current Interpretive Data was last revised on 2018. Testing performed by: [facility], [address] [place] [phone] Lymphocyte pct 44.0 % CERNER BJ Comment: Interpretive Data Percent cell count reference ranges are not reported, since discordance with absolute values may lead to misinterpretation of CBC data. Current Interpretive Data was last revised on 2018. Testing performed by: [facility], [address] [place] [phone] Monocyte pct 1.8 % MAY NAVA Comment: Interpretive Data Percent cell count reference ranges are not reported, since discordance with absolute values may lead to misinterpretation of CBC data. Current Interpretive Data was last revised on 2018. Testing performed by: [facility], [address] [place] [phone] Eosinophil pct 0.6 % MAY NAVA Comment: Interpretive Data Percent cell count reference ranges are not reported, since discordance with absolute values may lead to misinterpretation of CBC data. Current Interpretive Data was last revised on 2018. Testing performed by: [facility], [address] [place], [place] [phone] Basophil pct 0.1 % MAY NAVA Comment: Interpretive Data Percent cell count reference ranges are not reported, since discordance with absolute values may lead to misinterpretation of CBC data. Current Interpretive Data was last revised on 2018. Testing performed by: [facility], [address] [place] [phone] Blood 09/07/2025 1:05 PM CDT 09/07/2025 1:17 PM CDT Darryl Quintanilla MD LAB BLOOD OR DERABLES Final Result [facility] [place] [address] * Type and screen (09/07/2025 1:05 PM CDT) Gulshan, indirect Negative ABO Rh O Positive MAY LUBIN Blood 09/07/2025 1:05 PM CDT 09/07/2025 1:37 PM CDT Narrative [facility] - 09/07/2025 2:37 PM CDT Has the patient had Daratumumab or Isatuximab in the past 6 months?->Unknown Darryl Quintanilla MD LAB BLOOD BA NK TEST ORDERABLES Final Result Performing Organization Address City/[facility]/ZIP Co de Phone Number [facility] [place] [address] * Uric acid (09/07/2025 1:05 PM CDT) Uric acid 5.5 3.0 - 8.0 mg/dL Blood 09/07/2025 1:05 PM CDT 09/07/2025 1:20 PM CDT Darryl Quintanilla MD LAB BLOOD OR DERABLES Final Result Performing Organization Address City/[facility] Co de Phone Number [facility] [place] [address] * Phosphorus (09/07/2025 1:05 PM CDT) Phosphorus, pl 3.2 2.3 - 4.5 mg/dL Blood 09/07/2025 1:05 PM CDT 09/07/2025 1:20 PM CDT Darryl Quintanilla MD LAB BLOOD OR DERABLES Final Result Performing Organization Address City/[facility] [place] [address] * Magnesium (09/07/2025 1:05 PM CDT) Magnesium 1.8 1.4 - 2.5 mg/dL Blood 09/07/2025 1:05 PM CDT 09/07/2025 1:20 PM CDT Darryl Quintanilla MD LAB BLOOD OR DERABLES Final Result [facility] [place] [address] * Lactate dehydrogenase (LD) (09/07/2025 1:05 PM CDT) Pathologist [facility] Lactate dehydrogenase (LDH) 190 100 - 250 Units/L Blood 09/07/2025 1:05 PM CDT 09/07/2025 1:20 PM CDT Darryl Quintanilla MD LAB BLOOD OR DERABLES Final Result Performing Organization Address [facility] Co de Phone Number [facility] [place] [address] * Comprehensive metabolic panel (09/07/2025 1:05 PM CDT) [facility] Sodium 138 135 - 145 mmol/L Potassium, pl 4.1 3.3 - 4.9 mmol/L [facility] Chloride 103 97 - 110 mmol/L [facility] CO2 23 22 - 32 mmol/L [facility] Anion gap 12 2 - 15 mmol/L [facility] BUN 23 6 - 25 mg/dL [facility] Creatinine 1.08 0.80 - 1.30 mg/dL [facility] Glucose 151 70 - 199 mg/dL [facility] Comment: Interpretive Data Fasting glucose >/= 126 mg/dl is diagnostic for diabetes. Fasting is defined as no caloric intake for at least 8 hours. Fasting glucose between 100 mg/dl to 125 mg/dl is diagnostic of prediabetes. In a patient with classic symptoms of hyperglycemia or hyperglycemic crisis, a random glucose >/= 200 mg/dl is diagnostic for diabetes. In the absence of unequivocal hyperglycemia, results should be confirmed by repeat testing. The classification and Diagnosis of Diabetes Diabetes Care 2021; 46: S19-S40. Current interpretive data was last revised 2022. Calcium 9.9 8.5 - 10.3 mg/dL [facility] Bilirubin, total 0.7 0.1 - 1.2 mg/dL [facility] Protein, pl 7.7 6.5 - 8.5 g/dL [facility] Albumin 4.6 3.5 - 5.0 g/dL [facility] Alk phos 74 40 - 130 Units/L [facility] ALT 16 7 - 55 Units/L [facility] AST 29 10 - 50 Units/L [facility] Blood 09/07/2025 1:05 PM CDT 09/07/2025 1:20 PM CDT us Darryl Quintanilla MD LAB BLOOD OR DERABLES Final Result [facility] [address] [facility] [place] [address] * FLT3 Mutation Detection by PCR (09/07/2025 12:42 PM CDT) FLT3 See Footnote Comment:RESULT: see interpre tation FLT3 final diagnosis See Footnote [facility] Comment: Peripheral blood, FLT3 mutation analysis: Negative. Neither FLT3 internal tandem duplication (FLT3-ITD) nor changes involving codon D835 and/or I836 in the tyrosine kinase domain (FLT3-TKD) was detected. Comment: Samples containing a percentage mutated nucleic acid below the established analytic sensitivity level may not be detected by this method. See section of Method Summary below for details. Signing Pathologist: Kelsey Zaldivar M.D., Ph.D. ADDITIONAL INFORMATION Method summary - Genomic DNA was extracted and a qualitative PCR-based assay performed that detects the presence of two separate mutations in the fms-related tyrosine kinase 3 gene (FLT3): (1) internal tandem duplication (ITD) of coding sequence in a susceptible region of the intracellular juxtamembrane domain and (2) point mutations in the codon for [id number]. Note: In positive cases with multiple FLT3-ITD peaks, the reported height reflects the total height of the ITD peaks in comparison to the height of the unmutated wild type peak. The analytic sensitivity of this assay is approximately 5% for FLT3-ITD and FLT3-D835. This assay does not detect ITD mutations greater than 420 bp in size. This test was developed and its performance characteristics determined by [facility] in a manner consistent with CLIA requirements. This test has not been cleared or approved by the U.S. Food and Drug Administration. Test Performed by: [facility] [place] [address] Pompom Maker: Alison Holt Ph.D.; CLIA# [id number] FLT3 specimen type See Footnote MAY EMERSON Comment:RESULT: Peripheral B lood Blood 09/07/2025 12:4 2 PM CDT 09/08/2025 1:56 PM CDT Darryl Quintanilla MD LAB BODY FLUIDS AND STOOLS ORDERABLES Final Result Performing Organization Address City/State/[facility] Co de Phone Number [facility] [address] [place] [address] from Last 3 Months Insurance PPO [employer] MEDICARE [facility] MEDICARE Address: [facility] [id number] [place] [address] [place] [address] MEDICARE Care Teams Hand 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
[2025-09-16 12:55] LABS: Alanine Aminotransferase 18 U/L (6-50); Albumin Level 4.4 g/dL (3.5-5.1); Alkaline Phosphatase 77 U/L (38-126); Anion Gap 12 mmol/L (4-12); Aspartate Amino Transferase 32 U/L (17-59); Bilirubin,Total 0.9 mg/dL (0.2-1.3); Blood Urea Nitrogen 19 mg/dL (9-20); Calcium 9.1 mg/dL (8.4-10.2); Carbon Dioxide 22 mmol/L (22-30); Chloride 106 mmol/L (98-107); Estimated Glomerular Filt Rate > 60; Glucose 174 mg/dL (65-110); Osmolality Calculated 296 mOsm/kg (285-295); Potassium 4.5 mmol/L (3.4-5.0); Sodium 140 mmol/L (137-145); Total Protein 6.7 g/dL (6.3-8.2); Uric Acid 5.8 mg/dL (3.5-8.5)
== END 2025-09-16 11:35 | disposition home or self-care (01) ==
LOC: CHSLAB 11:37
PROVIDERS: PCP Internal Medicine
DX: D46.9 Myelodysplastic syndrome, unspecified (principal)
CPT/HCPCS: 36415; 80053; 83615; 84550; 85025; 85055